=== PATIENT | male | born 1940 | race Caucasian/White ===

== ENCOUNTER 2023-06-14 12:33 | Inpatient (IN) | payer MEDICARE, OTHER ==
[~2023-06-14] VITALS: Ht 165.1 cm; Wt 50.5 kg
[2023-06-14] MEDS: SODIUM CHLORIDE 0.9% 1000ML BAG (SEPSIS BOLUS) IV ONE (13:07)
[2023-06-14] MEDS: PIPERACILLIN/TAZO 3.375G/50ML 50 ML IV ONE (13:31)
[2023-06-14 13:33] LABS: HEMATOCRIT. 43.2 % (42.0-52.0); HEMOGLOBIN. 13.8 g/dL (14.0-18.0); MEAN CORPUSCULAR HEMOGLOBIN 28.9 pg (28.0-32.0); MEAN CORPUSCULAR HGB CONC 32.1 g/dL (31.0-37.0); MEAN CORPUSCULAR VOLUME 90.2 fL (80.0-94.0); MEAN PLATELET VOLUME 10.5 fl (7.4-10.4); PLATELET 188 x1000/uL (130-400); RED BLOOD CELL COUNT 4.79 mill/uL (4.7-6.1); RED CELL DISTRIBUTION WIDTH 15.2 % (11.6-14.6); WHITE BLOOD COUNT 14.2 x1000/uL (4.5-11.0)
[2023-06-14 13:34] LABS: DIFFERENTIAL COMMENT 1
[2023-06-14 13:44] LABS: INR 1.1; PROTHROMBIN TIME 12.5 sec (9.6-11.0)
[2023-06-14 13:56] LABS: LACTIC ACID 2.1 mmol/L (0.4-2.0)
[2023-06-14 14:00] LABS: ALANINE AMINOTRANSFERASE 8 IU/L (10-49); ALBUMIN 3.9 g/dL (3.2-4.8); ASPARTATE AMINOTRANSFERASE 33 IU/L (<34); BILIRUBIN TOTAL 0.9 mg/dL (0.1-1.0); CALCIUM 10.3 mg/dL (8.7-10.4); CARBON DIOXIDE 28 mEq/L (21-32); CHLORIDE 110 mEq/L (98-107); CREATININE 3.4 mg/dL (0.6-1.3); GLUCOSE 127 mg/dL (70-105); POTASSIUM 4.8 mEq/L (3.5-5.1); PROTEIN TOTAL 7.6 g/dL (6.0-8.3); SODIUM 144 mEq/L (136-145); TROPONIN I HIGH SENSITIVITY 24 ng/L (3.0-53)
[2023-06-14] MEDS: ACETAMINOPHEN 650MG SUPP PR STA (14:00)
[2023-06-14 14:02] LABS: ANISOCYTOSIS 1+; PLATELET ESTIMATE NORMAL
[2023-06-14 14:03] LABS: UREA NITROGEN BLOOD 101 mg/dL (9-23)
[2023-06-14] MEDS: VANCOMYCIN 1G PREMIX 200 ML IV ONE (14:15)
[2023-06-14 14:57] LABS: CLARITY URINE CLOUDY (CLEAR); COLOR URINE DARK YELLOW (YELLOW); GLUCOSE URINE NEGATIVE (NEGATIVE); KETONES URINE TRACE (NEGATIVE); LEUKOCYTE ESTERASE URINE NEGATIVE (NEGATIVE); NITRITE URINE NEGATIVE (NEGATIVE); OCCULT BLOOD URINE 1+ (NEGATIVE); PROTEIN URINE 1+ (NEGATIVE); UROBILINOGEN URINE 0.2 E.U./dL (0.2-1.0)
[2023-06-14 15:24] LABS: BACTERIA URINE 2+; SQUAMOUS EPITHELIAL CELL URINE FEW /lpf (RARE/1+); WBC URINE 0-2 /hpf (0-2)
[2023-06-14] MEDS ORDERED: ACETAMINOPHEN 650MG SUPP PR PRN (15:45)
[2023-06-14] MEDS ORDERED: DEXTROSE 50% WATER 50ML SYRINGE IV PRN (15:45)
[2023-06-14] MEDS ORDERED: ONDANSETRON HCL 4MG/2ML INJ IV PRN (15:45)
[2023-06-14] MEDS: PANTOPRAZOLE SODIUM 40 MG/VIAL IV SCH (16:50)
[2023-06-14] MEDS: DEXT 5%/0.45% NACL 1000ML 1,000 ML IV SCH (16:50)
[2023-06-14] MEDS: BLOOD SUGAR DIAGNOSTIC STRIP TEST SCH (17:17)
[2023-06-14] MEDS: INSULIN LISPRO 100 UNITS/ML SUBCUT SCH (17:17)
[2023-06-14 21:02] LABS: CALCIUM 8.5 mg/dL (8.7-10.4); CREATININE 2.5 mg/dL (0.6-1.3); POTASSIUM 4.4 mEq/L (3.5-5.1)
[2023-06-14] MEDS: ENOXAPARIN 30MG/0.3ML SYR SUBCUT SCH (23:00)
[2023-06-14] MEDS: PIPERACILLIN/TAZO 3.375G/50ML 50 ML IV SCH (23:29)
[2023-06-14 23:32] LABS: CREATINE KINASE 92 IU/L (46-171); TROPONIN I HIGH SENSITIVITY 13 ng/L (3.0-53)
[2023-06-15] VITALS (7 sets, daily range): BP systolic 84–114; BP diastolic 36–79; PULSE 60–98; RESP 16–24; TEMP 97.9–98.7
[2023-06-15 06:51] LABS: HEMATOCRIT. 34.1 % (42.0-52.0); HEMOGLOBIN. 11.4 g/dL (14.0-18.0); MEAN CORPUSCULAR HEMOGLOBIN 29.8 pg (28.0-32.0); MEAN CORPUSCULAR HGB CONC 33.3 g/dL (31.0-37.0); MEAN CORPUSCULAR VOLUME 89.5 fL (80.0-94.0); MEAN PLATELET VOLUME 10.3 fl (7.4-10.4); PLATELET 149 x1000/uL (130-400); RED BLOOD CELL COUNT 3.81 mill/uL (4.7-6.1); RED CELL DISTRIBUTION WIDTH 15.5 % (11.6-14.6); WHITE BLOOD COUNT 9.9 x1000/uL (4.5-11.0)
[2023-06-15 07:00] LABS: DIFFERENTIAL COMMENT 1
[2023-06-15 07:14] LABS: CREATINE KINASE 78 IU/L (46-171); TROPONIN I HIGH SENSITIVITY 9 ng/L (3.0-53)
[2023-06-15 07:20] LABS: ALANINE AMINOTRANSFERASE < 7 IU/L (10-49); ALBUMIN 3.1 g/dL (3.2-4.8); ASPARTATE AMINOTRANSFERASE 28 IU/L (<34); BILIRUBIN TOTAL 0.5 mg/dL (0.1-1.0); CALCIUM 8.7 mg/dL (8.7-10.4); CARBON DIOXIDE 23 mEq/L (21-32); CHLORIDE 115 mEq/L (98-107); CHOLESTEROL 97 mg/dL (<200); CREATININE 1.8 mg/dL (0.6-1.3); GLUCOSE 127 mg/dL (70-105); HDL CHOLESTEROL < 20 mg/dL (>55); LDL CHOLESTEROL 44 mg/dL (5-100); PHOSPHORUS 3.3 mg/dL (2.5-4.9); POTASSIUM 3.8 mEq/L (3.5-5.1); SODIUM 146 mEq/L (136-145); T4 FREE 0.92 ng/dL (0.89-1.76); THYROID STIMULATING HORMONE 1.04 uIU/mL (0.55-4.78); TRIGLYCERIDE 166 mg/dL (0-150); UREA NITROGEN BLOOD 67 mg/dL (9-23)
[2023-06-15 07:28] LABS: PROTEIN TOTAL 5.5 g/dL (6.0-8.3)
[2023-06-15] MEDS: DEXT 5%/LACTATED RINGERS 1,000 ML IV SCH (09:02)
[2023-06-15] MEDS ORDERED: VANCOMYCIN 1.25GM PMX (XELLIA) 250 ML IV NR (11:00)
[2023-06-15 12:32] LABS: BG BASE EXCESS -1.5 mmol/L (-2.0-2.0); BG CARBOXYHEMOGLOBIN 0.3 % (0.5-1.5); BG DEOXYHEMOGLOBIN 2.1 % (0.0-5.0); BG FRACTION INSPIRED OXYGEN 24; BG METHEMOGLOBIN 0.3 % (0.0-1.5); BG OXYGEN SATURATION 97.9 % (92.0-98.5); BG OXYHEMOGLOBIN 97.3 % (94.0-97.0); BG PCO2 37.7 mmHg (35.0-45.0); BG PH 7.403 (7.350-7.450); BG PO2 111.3 mmHg (75.0-100.0); BG SAMPLE SITE RIGHT RADIAL; BG TOTAL HEMOGLOBIN 11.5 g/dL (12.0-18.0); BG VENT MODE ROOM AIR
[2023-06-15] MEDS: MIDODRINE HCL 5MG TABLET PO SCH ×2 (13:04→17:41)
[2023-06-15] MEDS: DEXT 5%/0.2% NACL 1,000 ML IV SCH (13:46)
[2023-06-15] MEDS: SODIUM CHLORIDE 0.45% 500 ML IV ONE (14:39)
[2023-06-15 16:04] LABS: PLATELET ESTIMATE NORMAL
[2023-06-15] MEDS ORDERED: DIATR MEGLU/DIATRIZOATE SOLN 30ML ONE (16:53)
[2023-06-15] MEDS: NA PHOS,M-B/NA PHOS,DI-BA ENEMA 118ML PR ONE (21:45)
[2023-06-16] VITALS (9 sets, daily range): BP systolic 99–135; BP diastolic 43–64; PULSE 77–91; RESP 16–20; TEMP 97.5–98.7
[2023-06-16 06:35] LABS: HEMATOCRIT. 32.5 % (42.0-52.0); HEMOGLOBIN. 10.8 g/dL (14.0-18.0); MEAN CORPUSCULAR HGB CONC 33.2 g/dL (31.0-37.0); MEAN CORPUSCULAR VOLUME 90.4 fL (80.0-94.0); PLATELET 143 x1000/uL (130-400); RED BLOOD CELL COUNT 3.59 mill/uL (4.7-6.1); RED CELL DISTRIBUTION WIDTH 15.1 % (11.6-14.6); WHITE BLOOD COUNT 7.4 x1000/uL (4.5-11.0)
[2023-06-16 06:45] LABS: DIFFERENTIAL COMMENT 1
[2023-06-16 07:07] LABS: ALANINE AMINOTRANSFERASE 23 IU/L (10-49); ALBUMIN 2.9 g/dL (3.2-4.8); ASPARTATE AMINOTRANSFERASE 58 IU/L (<34); BILIRUBIN TOTAL 0.5 mg/dL (0.1-1.0); CALCIUM 8.4 mg/dL (8.7-10.4); CARBON DIOXIDE 24 mEq/L (21-32); CHLORIDE 114 mEq/L (98-107); CREATININE 1.1 mg/dL (0.6-1.3); GLUCOSE 142 mg/dL (70-105); PHOSPHORUS 1.7 mg/dL (2.5-4.9); POTASSIUM 3.1 mEq/L (3.5-5.1); PROTEIN TOTAL 5.5 g/dL (6.0-8.3); SODIUM 143 mEq/L (136-145); UREA NITROGEN BLOOD 39 mg/dL (9-23)
[2023-06-16] MEDS: POTASSIUM PHOSPHATE 30 MMOL in SODIUM CHLORIDE 0.9% 490 ML IV NR (09:48)
[2023-06-16] MEDS ORDERED: POTASSIUM PHOSPHATE 20 MMOL in DEXT 5% WATER 243.3333 ML IV ONE (11:00)
[2023-06-16] MEDS: PIPERACILLIN/TAZO 3.375G/50ML 50 ML IV SCH (15:34)
[2023-06-16 15:35] LABS: PLATELET ESTIMATE NORMAL
[2023-06-16 16:13] LABS: CALCIUM 7.9 mg/dL (8.7-10.4); CARBON DIOXIDE 26 mEq/L (21-32); CHLORIDE 112 mEq/L (98-107); CREATININE 0.9 mg/dL (0.6-1.3); GLUCOSE 103 mg/dL (70-105); PHOSPHORUS 3.5 mg/dL (2.5-4.9); POTASSIUM 3.8 mEq/L (3.5-5.1); SODIUM 143 mEq/L (136-145); UREA NITROGEN BLOOD 30 mg/dL (9-23)
[2023-06-17] VITALS (46 sets, daily range): BP systolic 52–156; BP diastolic 36–86; PULSE 85–143; RESP 15–40; TEMP 97.7–99.8
[2023-06-17 07:49] LABS: HEMATOCRIT 32.4 % (42.0-52.0); HEMOGLOBIN 10.7 g/dL (14.0-18.0); MEAN CORPUSCULAR HEMOGLOBIN 29.4 pg (28.0-32.0); MEAN CORPUSCULAR VOLUME 89.1 fL (80.0-94.0); PLATELET 146 x1000/uL (130-400); RED BLOOD CELL COUNT 3.64 mill/uL (4.7-6.1); WHITE BLOOD COUNT 8.6 x1000/uL (4.5-11.0)
[2023-06-17 07:52] LABS: CALCIUM 7.7 mg/dL (8.7-10.4); CARBON DIOXIDE 26 mEq/L (21-32); CHLORIDE 107 mEq/L (98-107); CREATININE 0.9 mg/dL (0.6-1.3); GLUCOSE 145 mg/dL (70-105); PHOSPHORUS 1.8 mg/dL (2.5-4.9); POTASSIUM 3.2 mEq/L (3.5-5.1); SODIUM 140 mEq/L (136-145); UREA NITROGEN BLOOD 19 mg/dL (9-23)
[2023-06-17] MEDS: MAGNESIUM 2 G PREMIX 50 ML IV NR (11:39)
[2023-06-17] MEDS: POTASSIUM PHOSPHATE 30 MMOL in DEXT 5% WATER 490 ML IV ONE (12:50)
[2023-06-17] MEDS ORDERED: DILTIAZEM HCL 5MG/ML 5ML VIAL IV NR (15:00)
[2023-06-17 15:20] LABS: BG BASE EXCESS 3.5 mmol/L (-2.0-2.0); BG CARBOXYHEMOGLOBIN 0.3 % (0.5-1.5); BG DEOXYHEMOGLOBIN 19.1 % (0.0-5.0); BG FRACTION INSPIRED OXYGEN 40; BG HCO3 ACT 25.5 mmol/L (22.0-26.0); BG METHEMOGLOBIN 0.2 % (0.0-1.5); BG OXYGEN SATURATION 80.8 % (92.0-98.5); BG OXYHEMOGLOBIN 80.4 % (94.0-97.0); BG PCO2 30.9 mmHg (35.0-45.0); BG PH 7.535 (7.350-7.450); BG PO2 39.3 mmHg (75.0-100.0); BG SAMPLE SITE RIGHT RADIAL; BG TOTAL HEMOGLOBIN 13.3 g/dL (12.0-18.0); BG VENT MODE NASAL CANNULA
[2023-06-17] MEDS ORDERED: NOREPINEPHRINE 8MG/250ML PMX 250 ML IV ONE (16:15)
[2023-06-17] MEDS ORDERED: KETAMINE HCL 50 MG/ML 10ML IV NR (16:30)
[2023-06-17] MEDS ORDERED: NOREPINEPHRINE 8MG/250ML PMX 250 ML IV PRN (16:45)
[2023-06-17] MEDS: PROPOFOL 10MG/ML 100ML 100 ML IV PRN (17:05)
[2023-06-17] MEDS ORDERED: MIDAZOLAM HCL 5 MG/5 ML VIAL IV NR (17:30)
[2023-06-17] MEDS ORDERED: MIDAZOLAM 100MG/100ML PMX 100 ML IV PRN (17:45)
[2023-06-17] MEDS: MIDAZOLAM HCL 2 MG/2 ML VIAL IV NR (17:47)
[2023-06-17] MEDS: NOREPINEPHRINE 8MG/250ML PMX 250 ML IV PRN (17:48)
[2023-06-17 18:04] LABS: BG BASE EXCESS -1.1 mmol/L (-2.0-2.0); BG CARBOXYHEMOGLOBIN 0.2 % (0.5-1.5); BG DEOXYHEMOGLOBIN 1.1 % (0.0-5.0); BG FRACTION INSPIRED OXYGEN 100; BG HCO3 ACT 27.5 mmol/L (22.0-26.0); BG METHEMOGLOBIN 0.6 % (0.0-1.5); BG OXYGEN SATURATION 98.9 % (92.0-98.5); BG OXYHEMOGLOBIN 98.1 % (94.0-97.0); BG PCO2 64.5 mmHg (35.0-45.0); BG PH 7.248 (7.350-7.450); BG PO2 196.1 mmHg (75.0-100.0); BG SAMPLE SITE RIGHT RADIAL; BG TOTAL HEMOGLOBIN 13.4 g/dL (12.0-18.0); BG VENT MODE VENT - AC
[2023-06-17] MEDS: IPRATROPIUM/ALBUTEROL 0.5-3(2.5)MG/3ML NEB HHN SCH (18:21)
[2023-06-17] MEDS: SODIUM BICARBONATE 8.4% 1 MEQ/ML 50ML SYR IV NR (18:24)
[2023-06-17] MEDS: METOCLOPRAMIDE HCL 10MG/2ML VIAL IV SCH (18:24)
[2023-06-17] MEDS: METHYLPREDNISOLONE SOD SUCC 40MG/ML (ACT-O-VIAL) IV SCH (18:24)
[2023-06-17] MEDS: FENTANYL 2500MCG/250ML PMX 250 ML IV PRN (18:25)
[2023-06-17] MEDS: BUDESONIDE 0.5MG/2ML NEB HHN SCH (20:09)
[2023-06-17] MEDS: AZITHROMYCIN 500MG/250ML 250 ML IV SCH (21:34)
[2023-06-18] VITALS (109 sets, daily range): BP systolic 83–151; BP diastolic 32–99; PULSE 59–126; RESP 0–39; TEMP 97.3–98.6
[2023-06-18] MEDS: BLOOD SUGAR DIAGNOSTIC STRIP TEST SCH (00:16)
[2023-06-18] MEDS: INSULIN LISPRO 100 UNITS/ML SUBCUT SCH (00:21)
[2023-06-18 05:18] LABS: HEMATOCRIT. 36.7 % (42.0-52.0); HEMOGLOBIN. 12.2 g/dL (14.0-18.0); MEAN CORPUSCULAR HEMOGLOBIN 30.2 pg (28.0-32.0); MEAN CORPUSCULAR HGB CONC 33.2 g/dL (31.0-37.0); MEAN CORPUSCULAR VOLUME 90.9 fL (80.0-94.0); MEAN PLATELET VOLUME 10.6 fl (7.4-10.4); PLATELET 197 x1000/uL (130-400); RED BLOOD CELL COUNT 4.04 mill/uL (4.7-6.1); RED CELL DISTRIBUTION WIDTH 15.1 % (11.6-14.6); WHITE BLOOD COUNT 12.5 x1000/uL (4.5-11.0)
[2023-06-18 05:25] LABS: BG BASE EXCESS 2.6 mmol/L (-2.0-2.0); BG CARBOXYHEMOGLOBIN 0.3 % (0.5-1.5); BG FRACTION INSPIRED OXYGEN 50; BG METHEMOGLOBIN 0.5 % (0.0-1.5); BG OXYHEMOGLOBIN 95.2 % (94.0-97.0); BG PCO2 52.6 mmHg (35.0-45.0); BG PO2 84.4 mmHg (75.0-100.0); BG SAMPLE SITE RIGHT RADIAL; BG TOTAL HEMOGLOBIN 13.3 g/dL (12.0-18.0); BG VENT MODE VENT - AC
[2023-06-18 05:58] LABS: CARBON DIOXIDE 27 mEq/L (21-32); CHLORIDE 104 mEq/L (98-107); CREATININE 1.2 mg/dL (0.6-1.3); PHOSPHORUS 3.2 mg/dL (2.5-4.9); POTASSIUM 3.6 mEq/L (3.5-5.1); SODIUM 140 mEq/L (136-145); TRIGLYCERIDE 161 mg/dL (0-150); UREA NITROGEN BLOOD 19 mg/dL (9-23)
[2023-06-18 05:59] LABS: GLUCOSE 310 mg/dL (70-105)
[2023-06-18 06:40] LABS: DIFFERENTIAL COMMENT 1
[2023-06-18 08:48] LABS: BG BASE EXCESS 2.3 mmol/L (-2.0-2.0); BG CARBOXYHEMOGLOBIN 0.6 % (0.5-1.5); BG DEOXYHEMOGLOBIN 0.7 % (0.0-5.0); BG FRACTION INSPIRED OXYGEN 50; BG HCO3 ACT 28.6 mmol/L (22.0-26.0); BG METHEMOGLOBIN 0.5 % (0.0-1.5); BG OXYGEN SATURATION 99.3 % (92.0-98.5); BG OXYHEMOGLOBIN 98.2 % (94.0-97.0); BG PCO2 50.7 mmHg (35.0-45.0); BG PH 7.369 (7.350-7.450); BG PO2 176.4 mmHg (75.0-100.0); BG SAMPLE SITE RIGHT RADIAL; BG TOTAL HEMOGLOBIN 15.3 g/dL (12.0-18.0); BG VENT MODE VENT - AC
[2023-06-18 10:00] LABS: ANISOCYTOSIS 1+; PLATELET ESTIMATE NORMAL
[2023-06-18] MEDS ORDERED: SODIUM CHLORIDE 0.45% 500 ML IV ONE (11:45)
[2023-06-18] MEDS: DEXT 5%/0.45% NACL 1000ML 1,000 ML IV SCH (12:40)
[2023-06-18] MEDS: LACTATED RINGERS 1,000 ML IV ONE (12:41)
[2023-06-18] MEDS: IPRATROPIUM/ALBUTEROL 0.5-3(2.5)MG/3ML NEB HHN PRN (16:13)
[2023-06-18] MEDS: PROPOFOL 10MG/ML 100ML 100 ML IV PRN (19:00)
[2023-06-18] MEDS: MEROPENEM 1G/100ML 100 ML IV SCH (23:52)
[2023-06-19] VITALS (96 sets, daily range): BP systolic 61–158; BP diastolic 31–85; PULSE 59–124; RESP 0–40; TEMP 98.2–98.7
[2023-06-19 05:39] LABS: HEMATOCRIT. 35.5 % (42.0-52.0); HEMOGLOBIN. 11.7 g/dL (14.0-18.0); MEAN CORPUSCULAR HEMOGLOBIN 29.6 pg (28.0-32.0); MEAN CORPUSCULAR VOLUME 89.7 fL (80.0-94.0); MEAN PLATELET VOLUME 10.5 fl (7.4-10.4); PLATELET 258 x1000/uL (130-400); RED BLOOD CELL COUNT 3.96 mill/uL (4.7-6.1); RED CELL DISTRIBUTION WIDTH 14.3 % (11.6-14.6); WHITE BLOOD COUNT 27.4 x1000/uL (4.5-11.0)
[2023-06-19 05:53] LABS: CALCIUM 8.3 mg/dL (8.7-10.4); CARBON DIOXIDE 27 mEq/L (21-32); CHLORIDE 106 mEq/L (98-107); CREATININE 0.9 mg/dL (0.6-1.3); GLUCOSE 243 mg/dL (70-105); PHOSPHORUS 1.8 mg/dL (2.5-4.9); POTASSIUM 3.1 mEq/L (3.5-5.1); SODIUM 141 mEq/L (136-145); TRIGLYCERIDE 237 mg/dL (0-150); UREA NITROGEN BLOOD 18 mg/dL (9-23)
[2023-06-19 06:23] LABS: DIFFERENTIAL COMMENT 1
[2023-06-19 08:29] LABS: BG BASE EXCESS 5.6 mmol/L (-2.0-2.0); BG CARBOXYHEMOGLOBIN 0.3 % (0.5-1.5); BG DEOXYHEMOGLOBIN 0.7 % (0.0-5.0); BG FRACTION INSPIRED OXYGEN 40; BG HCO3 ACT 28.3 mmol/L (22.0-26.0); BG METHEMOGLOBIN 0.5 % (0.0-1.5); BG OXYGEN SATURATION 99.3 % (92.0-98.5); BG OXYHEMOGLOBIN 98.5 % (94.0-97.0); BG PCO2 34.3 mmHg (35.0-45.0); BG PH 7.534 (7.350-7.450); BG PO2 215.5 mmHg (75.0-100.0); BG SAMPLE SITE RIGHT RADIAL; BG TOTAL HEMOGLOBIN 11.6 g/dL (12.0-18.0); BG VENT MODE AC/VC
[2023-06-19] MEDS ORDERED: MIDAZOLAM HCL 5 MG/5 ML VIAL IV PRN (11:00)
[2023-06-19 11:11] LABS: PLATELET ESTIMATE NORMAL
[2023-06-19] MEDS: POTASSIUM PHOSPHATE 30 MMOL in DEXT 5% WATER 490 ML IV NR (12:16)
[2023-06-19] MEDS: FENTANYL CITRATE/PF 50MCG/ML 2ML VIAL IV PRN (21:16)
[2023-06-19] MEDS ORDERED: IOHEXOL-300 100 ML BOTTLE ONE (23:00)
[2023-06-20] VITALS (99 sets, daily range): BP systolic 69–188; BP diastolic 48–127; PULSE 69–109; RESP 16–40; TEMP 98–99.5
[2023-06-20 08:29] LABS: BG BASE EXCESS 3.9 mmol/L (-2.0-2.0); BG CARBOXYHEMOGLOBIN 0.2 % (0.5-1.5); BG DEOXYHEMOGLOBIN 4.4 % (0.0-5.0); BG FRACTION INSPIRED OXYGEN 30; BG METHEMOGLOBIN 0.2 % (0.0-1.5); BG OXYGEN SATURATION 95.6 % (92.0-98.5); BG OXYHEMOGLOBIN 95.2 % (94.0-97.0); BG PCO2 35.3 mmHg (35.0-45.0); BG PH 7.501 (7.350-7.450); BG PO2 73.8 mmHg (75.0-100.0); BG SAMPLE SITE LEFT RADIAL; BG TOTAL HEMOGLOBIN 12.1 g/dL (12.0-18.0); BG TOTAL RESPIRATORY RATE 39 b/min; BG VENT MODE VENT - AC
[2023-06-20] MEDS: MIDAZOLAM HCL 2 MG/2 ML VIAL IV PRN (08:35)
[2023-06-20 09:19] LABS: HEMATOCRIT. 32.4 % (42.0-52.0); HEMOGLOBIN. 10.5 g/dL (14.0-18.0); MEAN CORPUSCULAR HEMOGLOBIN 28.5 pg (28.0-32.0); MEAN CORPUSCULAR HGB CONC 32.3 g/dL (31.0-37.0); MEAN CORPUSCULAR VOLUME 88.1 fL (80.0-94.0); MEAN PLATELET VOLUME 10.2 fl (7.4-10.4); PLATELET 221 x1000/uL (130-400); RED BLOOD CELL COUNT 3.67 mill/uL (4.7-6.1); RED CELL DISTRIBUTION WIDTH 14.9 % (11.6-14.6)
[2023-06-20 09:30] LABS: DIFFERENTIAL COMMENT 1
[2023-06-20 09:59] LABS: CALCIUM 7.8 mg/dL (8.7-10.4); CARBON DIOXIDE 26 mEq/L (21-32); CHLORIDE 107 mEq/L (98-107); CREATININE 0.8 mg/dL (0.6-1.3); GLUCOSE 169 mg/dL (70-105); POTASSIUM 3.8 mEq/L (3.5-5.1); SODIUM 141 mEq/L (136-145); UREA NITROGEN BLOOD 23 mg/dL (9-23)
[2023-06-20 10:00] LABS: PHOSPHORUS 2.1 mg/dL (2.5-4.9)
[2023-06-20] MEDS ORDERED: MIDAZOLAM 100MG/100ML PMX 100 ML IV PRN (10:30)
[2023-06-20] MEDS ORDERED: FENTANYL 2500MCG/250ML PMX 250 ML IV PRN (10:30)
[2023-06-20 11:23] LABS: PLATELET ESTIMATE NORMAL
[2023-06-20] MEDS: FENTANYL CITRATE/PF 50MCG/ML 2ML VIAL IV NR (11:31)
[2023-06-20] MEDS: MIDAZOLAM HCL 2 MG/2 ML VIAL IV NR (11:32)
[2023-06-20] MEDS: POTASSIUM PHOSPHATE 20 MMOL in DEXT 5% WATER 243.3333 ML IV NR (17:33)
[2023-06-20] MEDS: NOREPINEPHRINE 8MG/250ML PMX 250 ML IV PRN (19:04)
[2023-06-20] MEDS: ENOXAPARIN 40MG/0.4ML SYR SUBCUT SCH (21:11)
[2023-06-21] VITALS (97 sets, daily range): BP systolic 67–139; BP diastolic 46–83; PULSE 63–135; RESP 14–37; TEMP 97.5–98.3
[2023-06-21 05:56] LABS: HEMATOCRIT 31.6 % (42.0-52.0); HEMOGLOBIN 10.6 g/dL (14.0-18.0); MEAN CORPUSCULAR HEMOGLOBIN 30.5 pg (28.0-32.0); MEAN CORPUSCULAR HGB CONC 33.4 g/dL (31.0-37.0); MEAN CORPUSCULAR VOLUME 91.1 fL (80.0-94.0); PLATELET 234 x1000/uL (130-400); RED BLOOD CELL COUNT 3.47 mill/uL (4.7-6.1); RED CELL DISTRIBUTION WIDTH 14.8 % (11.6-14.6); WHITE BLOOD COUNT 17.2 x1000/uL (4.5-11.0)
[2023-06-21 06:08] LABS: CARBON DIOXIDE 26 mEq/L (21-32); CHLORIDE 107 mEq/L (98-107); CREATININE 0.7 mg/dL (0.6-1.3); GLUCOSE 162 mg/dL (70-105); PHOSPHORUS 2.5 mg/dL (2.5-4.9); POTASSIUM 4.3 mEq/L (3.5-5.1); SODIUM 139 mEq/L (136-145); UREA NITROGEN BLOOD 25 mg/dL (9-23)
[2023-06-21 07:22] LABS: BG CARBOXYHEMOGLOBIN 0.3 % (0.5-1.5); BG DEOXYHEMOGLOBIN 1.8 % (0.0-5.0); BG FRACTION INSPIRED OXYGEN 35; BG HCO3 ACT 27.3 mmol/L (22.0-26.0); BG METHEMOGLOBIN 0.1 % (0.0-1.5); BG OXYGEN SATURATION 98.2 % (92.0-98.5); BG OXYHEMOGLOBIN 97.8 % (94.0-97.0); BG PCO2 36.4 mmHg (35.0-45.0); BG PH 7.493 (7.350-7.450); BG PO2 112.6 mmHg (75.0-100.0); BG SAMPLE SITE RIGHT RADIAL; BG TOTAL HEMOGLOBIN 11.8 g/dL (12.0-18.0); BG VENT MODE VENT - AC/VC
[2023-06-21] MEDS: SODIUM CHLORIDE 0.45% 1,000 ML IV SCH (08:29)
[2023-06-21] MEDS: MAGNESIUM 2 G PREMIX 50 ML IV NR (08:38)
[2023-06-21] MEDS ORDERED: LACTATED RINGERS 500 ML IV ONE (10:00)
[2023-06-21] MEDS: IPRATROPIUM/ALBUTEROL 0.5-3(2.5)MG/3ML NEB HHN SCH (14:43)
[2023-06-21] MEDS: ACETYLCYSTEINE 200MG/ML 20% VIAL 4ML INH SCH (14:43)
[2023-06-21] MEDS: MIDODRINE HCL 5MG TABLET PO SCH (18:38)
[2023-06-22] VITALS (41 sets, daily range): BP systolic 92–129; BP diastolic 46–85; PULSE 64–103; RESP 16–32; TEMP 98–98.9
[2023-06-22 06:23] LABS: HEMATOCRIT 31.7 % (42.0-52.0); HEMOGLOBIN 10.1 g/dL (14.0-18.0); MEAN CORPUSCULAR HEMOGLOBIN 29.4 pg (28.0-32.0); MEAN CORPUSCULAR HGB CONC 31.9 g/dL (31.0-37.0); MEAN CORPUSCULAR VOLUME 92.3 fL (80.0-94.0); PLATELET 230 x1000/uL (130-400); RED BLOOD CELL COUNT 3.44 mill/uL (4.7-6.1); RED CELL DISTRIBUTION WIDTH 14.7 % (11.6-14.6); WHITE BLOOD COUNT 17.8 x1000/uL (4.5-11.0)
[2023-06-22 06:51] LABS: CALCIUM 7.9 mg/dL (8.7-10.4); CARBON DIOXIDE 25 mEq/L (21-32); CHLORIDE 105 mEq/L (98-107); CREATININE 0.8 mg/dL (0.6-1.3); GLUCOSE 144 mg/dL (70-105); PHOSPHORUS 2.9 mg/dL (2.5-4.9); POTASSIUM 4.6 mEq/L (3.5-5.1); SODIUM 135 mEq/L (136-145); UREA NITROGEN BLOOD 24 mg/dL (9-23)
[2023-06-22 08:18] LABS: BG BASE EXCESS 3.5 mmol/L (-2.0-2.0); BG CARBOXYHEMOGLOBIN 0.3 % (0.5-1.5); BG DEOXYHEMOGLOBIN 1.8 % (0.0-5.0); BG FRACTION INSPIRED OXYGEN 35; BG HCO3 ACT 27.6 mmol/L (22.0-26.0); BG METHEMOGLOBIN 0.3 % (0.0-1.5); BG OXYGEN SATURATION 98.2 % (92.0-98.5); BG OXYHEMOGLOBIN 97.6 % (94.0-97.0); BG PH 7.457 (7.350-7.450); BG PO2 131.9 mmHg (75.0-100.0); BG SAMPLE SITE RIGHT RADIAL; BG TOTAL HEMOGLOBIN 10.6 g/dL (12.0-18.0); BG VENT MODE VENT - AC
[2023-06-22] MEDS: SODIUM CHLORIDE 0.9% 1,000 ML IV SCH (13:00)
[2023-06-22] MEDS ORDERED: MIDAZOLAM HCL 5 MG/5 ML VIAL IV PRN (21:45)
[2023-06-22] MEDS ORDERED: MIDAZOLAM HCL 2 MG/2 ML VIAL IV PRN (22:29)
[2023-06-23] VITALS (29 sets, daily range): BP systolic 101–126; BP diastolic 51–75; PULSE 65–92; RESP 16–38; TEMP 98–98.6; O2SAT 98–100
[2023-06-23 05:44] LABS: HEMATOCRIT 32.3 % (42.0-52.0); HEMATOCRIT. 32.3 % (42.0-52.0); HEMOGLOBIN 10.6 g/dL (14.0-18.0); HEMOGLOBIN. 10.6 g/dL (14.0-18.0); MEAN CORPUSCULAR HEMOGLOBIN 29.5 pg (28.0-32.0); MEAN CORPUSCULAR HGB CONC 32.8 g/dL (31.0-37.0); MEAN CORPUSCULAR VOLUME 89.9 fL (80.0-94.0); MEAN PLATELET VOLUME 9.6 fl (7.4-10.4); PLATELET 210 x1000/uL (130-400); RED CELL DISTRIBUTION WIDTH 14.6 % (11.6-14.6); WHITE BLOOD COUNT 15.3 x1000/uL (4.5-11.0)
[2023-06-23 06:02] LABS: DIFFERENTIAL COMMENT 1
[2023-06-23 06:09] LABS: CARBON DIOXIDE 27 mEq/L (21-32); CHLORIDE 105 mEq/L (98-107); CREATININE 0.7 mg/dL (0.6-1.3); GLUCOSE 139 mg/dL (70-105); PHOSPHORUS 2.8 mg/dL (2.5-4.9); POTASSIUM 4.5 mEq/L (3.5-5.1); SODIUM 138 mEq/L (136-145); UREA NITROGEN BLOOD 27 mg/dL (9-23)
[2023-06-23 11:43] LABS: BG BASE EXCESS 4.3 mmol/L (-2.0-2.0); BG CARBOXYHEMOGLOBIN 0.1 % (0.5-1.5); BG DEOXYHEMOGLOBIN 2.1 % (0.0-5.0); BG FRACTION INSPIRED OXYGEN 35; BG HCO3 ACT 28.8 mmol/L (22.0-26.0); BG METHEMOGLOBIN 0.2 % (0.0-1.5); BG OXYGEN SATURATION 97.9 % (92.0-98.5); BG OXYHEMOGLOBIN 97.6 % (94.0-97.0); BG PH 7.444 (7.350-7.450); BG PO2 112.4 mmHg (75.0-100.0); BG SAMPLE SITE RIGHT BRACHIAL; BG TOTAL HEMOGLOBIN 11.4 g/dL (12.0-18.0); BG TOTAL RESPIRATORY RATE 42 b/min; BG VENT MODE HIGH FLOW
[2023-06-23 16:49] LABS: PLATELET ESTIMATE NORMAL
[2023-06-23] MEDS: METHYLPREDNISOLONE SOD SUCC 40MG/ML (ACT-O-VIAL) IV SCH (17:00)
[2023-06-24] VITALS (26 sets, daily range): BP systolic 100–135; BP diastolic 49–102; PULSE 66–102; RESP 15–38; TEMP 97.6–98.7; O2SAT 98–99
[2023-06-24] MEDS: ACETYLCYSTEINE 200MG/ML 20% VIAL 4ML INH SCH (00:36)
[2023-06-24 06:58] LABS: HEMATOCRIT 34.7 % (42.0-52.0); HEMOGLOBIN 11.4 g/dL (14.0-18.0); MEAN CORPUSCULAR HEMOGLOBIN 29.4 pg (28.0-32.0); MEAN CORPUSCULAR HGB CONC 32.8 g/dL (31.0-37.0); MEAN CORPUSCULAR VOLUME 89.6 fL (80.0-94.0); PLATELET 241 x1000/uL (130-400); RED BLOOD CELL COUNT 3.87 mill/uL (4.7-6.1); RED CELL DISTRIBUTION WIDTH 14.3 % (11.6-14.6); WHITE BLOOD COUNT 16.4 x1000/uL (4.5-11.0)
[2023-06-24 09:39] LABS: CALCIUM 7.8 mg/dL (8.7-10.4); CARBON DIOXIDE 30 mEq/L (21-32); CHLORIDE 103 mEq/L (98-107); CREATININE 0.6 mg/dL (0.6-1.3); GLUCOSE 83 mg/dL (70-105); PHOSPHORUS 2.3 mg/dL (2.5-4.9); POTASSIUM 4.3 mEq/L (3.5-5.1); SODIUM 137 mEq/L (136-145); UREA NITROGEN BLOOD 27 mg/dL (9-23)
[2023-06-25] VITALS (15 sets, daily range): BP systolic 106–154; BP diastolic 50–85; PULSE 75–94; RESP 17–36; TEMP 97.5–97.8; O2SAT 98–99
[2023-06-25 06:18] LABS: HEMATOCRIT 36.6 % (42.0-52.0); MEAN CORPUSCULAR HEMOGLOBIN 29.3 pg (28.0-32.0); MEAN CORPUSCULAR HGB CONC 32.8 g/dL (31.0-37.0); MEAN CORPUSCULAR VOLUME 89.1 fL (80.0-94.0); PLATELET 258 x1000/uL (130-400); RED BLOOD CELL COUNT 4.11 mill/uL (4.7-6.1); RED CELL DISTRIBUTION WIDTH 14.1 % (11.6-14.6); WHITE BLOOD COUNT 14.3 x1000/uL (4.5-11.0)
[2023-06-25 06:33] LABS: CALCIUM 8.2 mg/dL (8.7-10.4); CARBON DIOXIDE 30 mEq/L (21-32); CHLORIDE 103 mEq/L (98-107); CREATININE 0.6 mg/dL (0.6-1.3); GLUCOSE 154 mg/dL (70-105); PHOSPHORUS 2.8 mg/dL (2.5-4.9); POTASSIUM 4.5 mEq/L (3.5-5.1); SODIUM 137 mEq/L (136-145); UREA NITROGEN BLOOD 25 mg/dL (9-23)
[2023-06-26] VITALS (12 sets, daily range): BP systolic 74–131; BP diastolic 38–108; PULSE 72–120; RESP 16–40; TEMP 97.3–98.2
[2023-06-26 06:38] LABS: HEMATOCRIT. 40.8 % (42.0-52.0); HEMOGLOBIN. 13.2 g/dL (14.0-18.0); MEAN CORPUSCULAR HEMOGLOBIN 29.3 pg (28.0-32.0); MEAN CORPUSCULAR HGB CONC 32.4 g/dL (31.0-37.0); MEAN CORPUSCULAR VOLUME 90.6 fL (80.0-94.0); MEAN PLATELET VOLUME 9.4 fl (7.4-10.4); PLATELET 223 x1000/uL (130-400); RED BLOOD CELL COUNT 4.51 mill/uL (4.7-6.1); RED CELL DISTRIBUTION WIDTH 14.6 % (11.6-14.6); WHITE BLOOD COUNT 14.9 x1000/uL (4.5-11.0)
[2023-06-26 06:44] LABS: DIFFERENTIAL COMMENT 1
[2023-06-26 07:00] LABS: CALCIUM 8.2 mg/dL (8.7-10.4); CARBON DIOXIDE 31 mEq/L (21-32); CHLORIDE 102 mEq/L (98-107); CREATININE 0.6 mg/dL (0.6-1.3); GLUCOSE 121 mg/dL (70-105); PHOSPHORUS 2.6 mg/dL (2.5-4.9); POTASSIUM 4.9 mEq/L (3.5-5.1); SODIUM 137 mEq/L (136-145); UREA NITROGEN BLOOD 24 mg/dL (9-23)
[2023-06-26 13:10] LABS: PLATELET ESTIMATE NORMAL
[2023-06-26] MEDS ORDERED: LOPERAMIDE 2MG/15ML UDC GT SCH (17:00)
[2023-06-26] MEDS: LOPERAMIDE 2MG/15ML UDC PO NR (18:17)
[2023-06-26] MEDS: ACETAMINOPHEN 650MG/20.3ML UDC PO PRN (18:51)
[2023-06-26] MEDS: METHYLPREDNISOLONE SOD SUCC 40MG/ML (ACT-O-VIAL) IV SCH (21:44)
[2023-06-26] MEDS: ZOLPIDEM TARTRATE 5MG TABLET PO NR (22:47)
[2023-06-27] VITALS (12 sets, daily range): BP systolic 85–135; BP diastolic 41–66; PULSE 83–104; RESP 17–39; TEMP 97.7–98
[2023-06-27 06:30] LABS: HEMATOCRIT 34.8 % (42.0-52.0); HEMOGLOBIN 11.7 g/dL (14.0-18.0); MEAN CORPUSCULAR HEMOGLOBIN 30.1 pg (28.0-32.0); MEAN CORPUSCULAR HGB CONC 33.5 g/dL (31.0-37.0); MEAN CORPUSCULAR VOLUME 89.8 fL (80.0-94.0); PLATELET 187 x1000/uL (130-400); RED BLOOD CELL COUNT 3.87 mill/uL (4.7-6.1); RED CELL DISTRIBUTION WIDTH 14.7 % (11.6-14.6); WHITE BLOOD COUNT 13.9 x1000/uL (4.5-11.0)
[2023-06-27 07:11] LABS: CALCIUM 7.9 mg/dL (8.7-10.4); CARBON DIOXIDE 31 mEq/L (21-32); CHLORIDE 102 mEq/L (98-107); CREATININE 0.6 mg/dL (0.6-1.3); GLUCOSE 137 mg/dL (70-105); PHOSPHORUS 2.6 mg/dL (2.5-4.9); POTASSIUM 4.8 mEq/L (3.5-5.1); SODIUM 137 mEq/L (136-145); UREA NITROGEN BLOOD 30 mg/dL (9-23)
[2023-06-27] MEDS ORDERED: IMOD PO (10:37)
[2023-06-27] MEDS ORDERED: MIDO5TAB4 PO (10:37)
[2023-06-27] MEDS: LOPERAMIDE HCL 2MG CAPSULE PO PRN (11:09)
[2023-06-27 16:38] LABS: BG BASE EXCESS 5.7 mmol/L (-2.0-2.0); BG CARBOXYHEMOGLOBIN 0.5 % (0.5-1.5); BG DEOXYHEMOGLOBIN 8.8 % (0.0-5.0); BG FRACTION INSPIRED OXYGEN 21; BG METHEMOGLOBIN 0.2 % (0.0-1.5); BG OXYGEN SATURATION 91.1 % (92.0-98.5); BG OXYHEMOGLOBIN 90.5 % (94.0-97.0); BG PCO2 42.9 mmHg (35.0-45.0); BG PH 7.463 (7.350-7.450); BG PO2 56.8 mmHg (75.0-100.0); BG SAMPLE SITE RIGHT RADIAL; BG TOTAL HEMOGLOBIN 12.2 g/dL (12.0-18.0); BG VENT MODE ROOM AIR
[2023-06-28] VITALS (12 sets, daily range): BP systolic 96–139; BP diastolic 38–87; PULSE 9–85; RESP 12–37; TEMP 97.1–98
[2023-06-28 06:14] LABS: HEMATOCRIT 35.7 % (42.0-52.0); HEMOGLOBIN 11.8 g/dL (14.0-18.0); MEAN CORPUSCULAR HEMOGLOBIN 30.2 pg (28.0-32.0); MEAN CORPUSCULAR HGB CONC 33.1 g/dL (31.0-37.0); MEAN CORPUSCULAR VOLUME 91.2 fL (80.0-94.0); PLATELET 194 x1000/uL (130-400); RED BLOOD CELL COUNT 3.91 mill/uL (4.7-6.1); RED CELL DISTRIBUTION WIDTH 14.7 % (11.6-14.6); WHITE BLOOD COUNT 11.4 x1000/uL (4.5-11.0)
[2023-06-28 06:48] LABS: CALCIUM 8.2 mg/dL (8.7-10.4); CARBON DIOXIDE 32 mEq/L (21-32); CHLORIDE 102 mEq/L (98-107); CREATININE 0.6 mg/dL (0.6-1.3); GLUCOSE 129 mg/dL (70-105); PHOSPHORUS 2.4 mg/dL (2.5-4.9); POTASSIUM 4.7 mEq/L (3.5-5.1); SODIUM 137 mEq/L (136-145); UREA NITROGEN BLOOD 26 mg/dL (9-23)
[2023-06-28] MEDS: SODIUM PHOSPHATE 20 MMOL in DEXT 5% WATER 243.3333 ML IV SCH (09:59)
[2023-06-29] VITALS (10 sets, daily range): BP systolic 95–130; BP diastolic 41–62; PULSE 80–110; RESP 22–38; TEMP 97–98.9
[2023-06-29 09:14] LABS: HEMATOCRIT 38.7 % (42.0-52.0); HEMOGLOBIN 12.7 g/dL (14.0-18.0); MEAN CORPUSCULAR HEMOGLOBIN 29.3 pg (28.0-32.0); MEAN CORPUSCULAR HGB CONC 32.9 g/dL (31.0-37.0); PLATELET 201 x1000/uL (130-400); RED BLOOD CELL COUNT 4.35 mill/uL (4.7-6.1); RED CELL DISTRIBUTION WIDTH 14.7 % (11.6-14.6); WHITE BLOOD COUNT 21.1 x1000/uL (4.5-11.0)
[2023-06-29 09:57] LABS: CALCIUM 8.7 mg/dL (8.7-10.4); CARBON DIOXIDE 33 mEq/L (21-32); CHLORIDE 100 mEq/L (98-107); CREATININE 0.6 mg/dL (0.6-1.3); GLUCOSE 110 mg/dL (70-105); PHOSPHORUS 1.9 mg/dL (2.5-4.9); POTASSIUM 4.2 mEq/L (3.5-5.1); SODIUM 135 mEq/L (136-145); UREA NITROGEN BLOOD 22 mg/dL (9-23)
[2023-06-29] MEDS: ZINC OXIDE 20% OINT 30GM TOP SCH (16:05)
[2023-06-29] MEDS: NYSTATIN 100,000 UNITS/GM CREAM 15GM TOP SCH (16:05)
[2023-06-30] VITALS (14 sets, daily range): BP systolic 94–137; BP diastolic 36–80; PULSE 76–113; RESP 17–41; TEMP 96.9–97.9
[2023-06-30 07:19] LABS: HEMATOCRIT 34.1 % (42.0-52.0); HEMOGLOBIN 11.5 g/dL (14.0-18.0); MEAN CORPUSCULAR HEMOGLOBIN 30.4 pg (28.0-32.0); MEAN CORPUSCULAR HGB CONC 33.7 g/dL (31.0-37.0); MEAN CORPUSCULAR VOLUME 90.2 fL (80.0-94.0); PLATELET 165 x1000/uL (130-400); RED BLOOD CELL COUNT 3.79 mill/uL (4.7-6.1); RED CELL DISTRIBUTION WIDTH 14.7 % (11.6-14.6); WHITE BLOOD COUNT 10.9 x1000/uL (4.5-11.0)
[2023-06-30 07:37] LABS: CARBON DIOXIDE 32 mEq/L (21-32); CHLORIDE 103 mEq/L (98-107); CREATININE 0.5 mg/dL (0.6-1.3); GLUCOSE 110 mg/dL (70-105); PHOSPHORUS 2.7 mg/dL (2.5-4.9); POTASSIUM 4.1 mEq/L (3.5-5.1); SODIUM 137 mEq/L (136-145); UREA NITROGEN BLOOD 20 mg/dL (9-23)
[2023-06-30 17:10] LABS: BG BASE EXCESS 5.7 mmol/L (-2.0-2.0); BG DEOXYHEMOGLOBIN 4.1 % (0.0-5.0); BG FRACTION INSPIRED OXYGEN 21; BG HCO3 ACT 29.9 mmol/L (22.0-26.0); BG METHEMOGLOBIN 0.2 % (0.0-1.5); BG OXYGEN SATURATION 95.9 % (92.0-98.5); BG OXYHEMOGLOBIN 94.7 % (94.0-97.0); BG PH 7.471 (7.350-7.450); BG PO2 74.9 mmHg (75.0-100.0); BG SAMPLE SITE RIGHT RADIAL; BG TOTAL HEMOGLOBIN 12.6 g/dL (12.0-18.0); BG VENT MODE ROOM AIR
[2023-06-30] MEDS: METHYLPREDNISOLONE SOD SUCC 40MG/ML (ACT-O-VIAL) IV SCH (17:43)
[2023-07-01] MEDS ORDERED: MED4 MT (18:53)
== END 2023-06-30 22:45 | disposition home or self-care (01) | DRG 870 ==
LOC: ER 13:44 → 7WST 15:10 → EDBEDREQTM 15:13 → EDBEDREQ 15:13 → 5EST 06-17 15:14 → CVICU 06-17 16:40 → 5EST 06-24 21:23 → 8WST 06-30 13:55
PROVIDERS: ADMIT Preventive Medicine Clinical Informatics; ATTEND Preventive Medicine Clinical Informatics
PROC: 5A1955Z Respiratory Ventilation, Greater than 96 Consecutive Hours (ICD-10-PCS; principal; 2023-06-17)
PROC: 0BH17EZ Insertion of Endotracheal Airway into Trachea, Via Natural or Artificial Opening (ICD-10-PCS; 2023-06-17)
PROC: 02HV33Z Insertion of Infusion Device into Superior Vena Cava, Percutaneous Approach (ICD-10-PCS; 2023-06-18)
PROC: B548ZZA Ultrasonography of Superior Vena Cava, Guidance (ICD-10-PCS; 2023-06-18)
PROC: 5A0945A Assistance with Respiratory Ventilation, 24-96 Consecutive Hours, High Flow/Velocity Cannula (ICD-10-PCS; 2023-06-22)
DX: A41.59 Other Gram-negative sepsis (principal); G92.8 Other toxic encephalopathy; J96.01 Acute respiratory failure with hypoxia; N17.0 Acute kidney failure with tubular necrosis; J69.0 Pneumonitis due to inhalation of food and vomit; J96.02 Acute respiratory failure with hypercapnia; K56.7 Ileus, unspecified; E87.0 Hyperosmolality and hypernatremia; J44.0 Chronic obstructive pulmonary disease with (acute) lower respiratory infection; J84.9 Interstitial pulmonary disease, unspecified; Z20.822 Contact with and (suspected) exposure to COVID-19; R65.20 Severe sepsis without septic shock; Z93.1 Gastrostomy status; E86.1 Hypovolemia; D64.9 Anemia, unspecified; I48.91 Unspecified atrial fibrillation; R13.10 Dysphagia, unspecified; Z79.899 Other long term (current) drug therapy; Z82.49 Family history of ischemic heart disease and other diseases of the circulatory system; Z87.01 Personal history of pneumonia (recurrent); Z90.49 Acquired absence of other specified parts of digestive tract
CPT/HCPCS: 31500; 36415; 36600; 71045; 71260; 74018; 74176; 80048; 80053; 80061; 80202; 81003; 82375; 82550; 82805; 82962; 83036; 83605; 83735; 83880; 84100; 84145; 84439; 84443; 84478; 84484; 85025; 85027; 86850; 86900; 87070; 87077; 87186; 87426; 92610; 93005; 93970; 94002; 94003; 94640; 97162; 97164; 97166; 97168; 97530; 97535; 99291; A6261; C1893; C9113; J0456; J1650; J1815; J2185; J2250; J2543; J2704; J2765; J2920; J3010; J3370; J3475; J3490; J7030; J7040; J7060; J7121; J7608; J7626; Q9963; Q9967

== ENCOUNTER 2023-07-06 04:05 | Inpatient (IN) | payer OTHER, MEDICARE ==
[~2023-07-06] VITALS: Ht 165.1 cm; Wt 58.8 kg
[~2023-07-06 04:05] MED LIST: IMOD PO; MED4 MT; MIDO5TAB4 PO
[2023-07-06 04:46] LABS: HEMATOCRIT. 39.3 % (42.0-52.0); HEMOGLOBIN. 12.7 g/dL (14.0-18.0); MEAN CORPUSCULAR HEMOGLOBIN 30.3 pg (28.0-32.0); MEAN CORPUSCULAR HGB CONC 32.4 g/dL (31.0-37.0); MEAN CORPUSCULAR VOLUME 93.6 fL (80.0-94.0); MEAN PLATELET VOLUME 8.7 fl (7.4-10.4); PLATELET 226 x1000/uL (130-400); RED CELL DISTRIBUTION WIDTH 15.1 % (11.6-14.6)
[2023-07-06 04:55] LABS: DIFFERENTIAL COMMENT 1
[2023-07-06 05:04] LABS: ALANINE AMINOTRANSFERASE 31 IU/L (10-49); ALBUMIN 3.8 g/dL (3.2-4.8); ASPARTATE AMINOTRANSFERASE 26 IU/L (<34); BILIRUBIN TOTAL 0.4 mg/dL (0.1-1.0); CALCIUM 9.2 mg/dL (8.7-10.4); CARBON DIOXIDE 31 mEq/L (21-32); CHLORIDE 111 mEq/L (98-107); CREATININE 1.2 mg/dL (0.6-1.3); GLUCOSE 125 mg/dL (70-105); POTASSIUM 4.4 mEq/L (3.5-5.1); PROTEIN TOTAL 6.6 g/dL (6.0-8.3); SODIUM 145 mEq/L (136-145); UREA NITROGEN BLOOD 49 mg/dL (9-23)
[2023-07-06] MEDS: SODIUM CHLORIDE 0.9% 1000ML BAG (SEPSIS BOLUS) IV ONE (05:30)
[2023-07-06] MEDS: PIPERACILLIN/TAZO 3.375G/50ML 50 ML IV ONE (05:30)
[2023-07-06 05:45] LABS: TROPONIN I HIGH SENSITIVITY 35 ng/L (3.0-53)
[2023-07-06 05:53] LABS: INR 1.1; PROTHROMBIN TIME 11.7 sec (9.6-11.0)
[2023-07-06 06:02] LABS: PLATELET ESTIMATE NORMAL
[2023-07-06] MEDS: VANCOMYCIN 1G PREMIX 200 ML IV ONE (06:06)
[2023-07-06] MEDS ORDERED: LIDOCAINE HCL 1% 10 MG/ML 10ML VIAL ONE (07:03)
[2023-07-06] MEDS ORDERED: PIPERACILLIN/TAZOBACTAM 3.375 G in DEXTROSE 5% WATER 50 ML IV SCH (09:00)
[2023-07-06] MEDS ORDERED: MAGNESIUM/ALUMINUM HYDROXIDE/SIMETHICONE 30ML UDC PO PRN (09:00)
[2023-07-06] MEDS ORDERED: ACETAMINOPHEN 325MG TABLET PO PRN ×2 (09:00)
[2023-07-06] MEDS ORDERED: CLONIDINE 0.1MG TABLET PO PRN (09:00)
[2023-07-06] MEDS ORDERED: ONDANSETRON HCL 4MG/2ML INJ IV PRN (09:00)
[2023-07-06] MEDS ORDERED: IPRATROPIUM/ALBUTEROL 0.5-3(2.5)MG/3ML NEB NEB PRN (09:00)
[2023-07-06] MEDS: ENOXAPARIN 40MG/0.4ML SYR SUBCUT SCH (10:09)
[2023-07-06 14:01] VITALS: PULSE 97; RESP 24; O2SAT 100
[2023-07-06] MEDS: IPRATROPIUM/ALBUTEROL 0.5-3(2.5)MG/3ML NEB NEB SCH (14:01)
[2023-07-06] MEDS: PIPERACILLIN/TAZO 3.375G/50ML 50 ML IV SCH (14:30)
[2023-07-06 20:09] VITALS: PULSE 132
[2023-07-07] VITALS (51 sets, daily range): BP systolic 66–122; BP diastolic 27–96; PULSE 54–115; RESP 18–46; TEMP 97.5–98.5; O2SAT 97–100
[2023-07-07] MEDS: VANCOMYCIN 750MG/150ML IV SCH (06:00)
[2023-07-07 07:30] LABS: CALCIUM 8.7 mg/dL (8.7-10.4); CARBON DIOXIDE 30 mEq/L (21-32); CHLORIDE 113 mEq/L (98-107); CREATININE 1.5 mg/dL (0.6-1.3); GLUCOSE 119 mg/dL (70-105); POTASSIUM 5.2 mEq/L (3.5-5.1); SODIUM 149 mEq/L (136-145); UREA NITROGEN BLOOD 40 mg/dL (9-23)
[2023-07-07 07:37] LABS: HEMATOCRIT. 39.5 % (42.0-52.0); MEAN CORPUSCULAR HEMOGLOBIN 30.1 pg (28.0-32.0); MEAN CORPUSCULAR HGB CONC 30.5 g/dL (31.0-37.0); MEAN CORPUSCULAR VOLUME 98.7 fL (80.0-94.0); MEAN PLATELET VOLUME 8.8 fl (7.4-10.4); PLATELET 203 x1000/uL (130-400); RED CELL DISTRIBUTION WIDTH 15.9 % (11.6-14.6); WHITE BLOOD COUNT 13.1 x1000/uL (4.5-11.0)
[2023-07-07 08:09] LABS: DIFFERENTIAL COMMENT 1
[2023-07-07] MEDS: SODIUM CHLORIDE 0.9% 1000ML BAG (SEPSIS BOLUS) IV ONE (08:59)
[2023-07-07] MEDS: MIDODRINE HCL 5MG TABLET PO SCH (10:00)
[2023-07-07 11:50] LABS: BG BASE EXCESS -2.4 mmol/L (-2.0-2.0); BG CARBOXYHEMOGLOBIN 0.3 % (0.5-1.5); BG DEOXYHEMOGLOBIN 0.9 % (0.0-5.0); BG FRACTION INSPIRED OXYGEN 36; BG METHEMOGLOBIN 0.1 % (0.0-1.5); BG OXYGEN SATURATION 99.1 % (92.0-98.5); BG OXYHEMOGLOBIN 98.7 % (94.0-97.0); BG PCO2 134.4 mmHg (35.0-45.0); BG PH 6.994 (7.350-7.450); BG PO2 226.7 mmHg (75.0-100.0); BG SAMPLE SITE RIGHT BRACHIAL; BG TOTAL HEMOGLOBIN 11.9 g/dL (12.0-18.0); BG VENT MODE NASAL CANNULA
[2023-07-07] MEDS ORDERED: MIDODRINE HCL 5MG TABLET PO SCH (13:00)
[2023-07-07] MEDS: PHENYLEPHRINE 50MG/250ML PMX 250 ML IV PRN (15:37)
[2023-07-07] MEDS: PHENYLEPHRINE 100 MG in DEXT 5% WATER 240 ML IV PRN (16:46)
[2023-07-07] MEDS ORDERED: ACETAMINOPHEN 650MG/20.3ML UDC NG PRN (17:30)
[2023-07-07] MEDS: DOCUSATE SODIUM SUGAR FREE 100MG/10ML UDC NG SCH (18:04)
[2023-07-07 18:07] LABS: PLATELET ESTIMATE NORMAL
[2023-07-07 18:08] LABS: ANISOCYTOSIS 1+
[2023-07-07 18:10] LABS: BG BASE EXCESS 1.5 mmol/L (-2.0-2.0); BG CARBOXYHEMOGLOBIN 0.5 % (0.5-1.5); BG DEOXYHEMOGLOBIN 5.1 % (0.0-5.0); BG FRACTION INSPIRED OXYGEN 25; BG HCO3 ACT 28.2 mmol/L (22.0-26.0); BG METHEMOGLOBIN 0.2 % (0.0-1.5); BG OXYGEN SATURATION 94.9 % (92.0-98.5); BG OXYHEMOGLOBIN 94.2 % (94.0-97.0); BG PCO2 54.5 mmHg (35.0-45.0); BG PH 7.332 (7.350-7.450); BG SAMPLE SITE RIGHT RADIAL; BG TOTAL HEMOGLOBIN 11.7 g/dL (12.0-18.0); BG VENT MODE HIGH FLOW
[2023-07-07] MEDS: LACTULOSE 20G/30ML UDC PO SCH (22:00)
[2023-07-07] MEDS: SENNOSIDES/DOCUSATE SOD 8.6/50MG TABLET PO SCH (22:43)
[2023-07-07] MEDS: METHYLPREDNISOLONE SOD SUCC 40MG/ML (ACT-O-VIAL) IV SCH (22:43)
[2023-07-08] VITALS (98 sets, daily range): BP systolic 90–139; BP diastolic 35–65; PULSE 43–122; RESP 15–45; TEMP 97.6–99.1; O2SAT 99–100
[2023-07-08 05:30] LABS: HEMATOCRIT. 30.5 % (42.0-52.0); MEAN CORPUSCULAR HEMOGLOBIN 30.8 pg (28.0-32.0); MEAN CORPUSCULAR HGB CONC 32.8 g/dL (31.0-37.0); MEAN CORPUSCULAR VOLUME 94.1 fL (80.0-94.0); MEAN PLATELET VOLUME 9.3 fl (7.4-10.4); PLATELET 177 x1000/uL (130-400); RED BLOOD CELL COUNT 3.24 mill/uL (4.7-6.1); RED CELL DISTRIBUTION WIDTH 15.5 % (11.6-14.6); WHITE BLOOD COUNT 12.5 x1000/uL (4.5-11.0)
[2023-07-08 05:45] LABS: CALCIUM 8.4 mg/dL (8.7-10.4); CREATININE 1.7 mg/dL (0.6-1.3); POTASSIUM 3.7 mEq/L (3.5-5.1)
[2023-07-08 06:36] LABS: DIFFERENTIAL COMMENT 1
[2023-07-08] MEDS: ENOXAPARIN 30MG/0.3ML SYR SUBCUT SCH (08:44)
[2023-07-08 09:25] LABS: PLATELET ESTIMATE NORMAL
[2023-07-08] MEDS: PANTOPRAZOLE SODIUM 40 MG/VIAL IV SCH (12:00)
[2023-07-08] MEDS: VANCOMYCIN 500MG/100ML IV NR (13:52)
[2023-07-08] MEDS: SODIUM HYPOCHLORITE SOLUTION (0.5%)FULL STRENGTH TOP SCH (13:52)
[2023-07-08] MEDS ORDERED: VANCOMYCIN 750MG/150ML IV SCH (15:00)
[2023-07-09] VITALS (92 sets, daily range): BP systolic 86–125; BP diastolic 35–87; PULSE 54–173; RESP 9–34; TEMP 97.3–98.6; O2SAT 97–99
[2023-07-09 05:48] LABS: HEMATOCRIT. 26.2 % (42.0-52.0); HEMOGLOBIN. 8.5 g/dL (14.0-18.0); MEAN CORPUSCULAR HEMOGLOBIN 30.6 pg (28.0-32.0); MEAN CORPUSCULAR HGB CONC 32.4 g/dL (31.0-37.0); MEAN CORPUSCULAR VOLUME 94.6 fL (80.0-94.0); MEAN PLATELET VOLUME 9.8 fl (7.4-10.4); PLATELET 156 x1000/uL (130-400); RED BLOOD CELL COUNT 2.77 mill/uL (4.7-6.1); RED CELL DISTRIBUTION WIDTH 15.5 % (11.6-14.6); WHITE BLOOD COUNT 12.1 x1000/uL (4.5-11.0)
[2023-07-09 06:31] LABS: CALCIUM 8.6 mg/dL (8.7-10.4); CREATININE 1.6 mg/dL (0.6-1.3); POTASSIUM 3.7 mEq/L (3.5-5.1)
[2023-07-09 07:06] LABS: DIFFERENTIAL COMMENT 1
[2023-07-09 09:21] LABS: ANISOCYTOSIS 1+; PLATELET ESTIMATE NORMAL
[2023-07-09] MEDS: VANCOMYCIN 500MG/100ML IV SCH (13:36)
[2023-07-09] MEDS: NYSTATIN POWDER 15GM TOP SCH (18:50)
[2023-07-10] VITALS (97 sets, daily range): BP systolic 55–137; BP diastolic 31–70; PULSE 68–115; RESP 15–51; TEMP 96.3–99.4; O2SAT 98–100
[2023-07-10 05:00] LABS: HEMATOCRIT. 29.2 % (42.0-52.0); HEMOGLOBIN. 9.4 g/dL (14.0-18.0); MEAN CORPUSCULAR HGB CONC 32.2 g/dL (31.0-37.0); MEAN CORPUSCULAR VOLUME 96.2 fL (80.0-94.0); MEAN PLATELET VOLUME 9.9 fl (7.4-10.4); PLATELET 156 x1000/uL (130-400); RED BLOOD CELL COUNT 3.04 mill/uL (4.7-6.1); RED CELL DISTRIBUTION WIDTH 15.6 % (11.6-14.6); WHITE BLOOD COUNT 11.9 x1000/uL (4.5-11.0)
[2023-07-10 05:10] LABS: CALCIUM 9.4 mg/dL (8.7-10.4); CREATININE 1.5 mg/dL (0.6-1.3); POTASSIUM 4.4 mEq/L (3.5-5.1)
[2023-07-10 06:55] LABS: DIFFERENTIAL COMMENT 1
[2023-07-10 10:52] LABS: PLATELET ESTIMATE NORMAL
[2023-07-10 11:38] LABS: BG BASE EXCESS 8.1 mmol/L (-2.0-2.0); BG CARBOXYHEMOGLOBIN 0.4 % (0.5-1.5); BG DEOXYHEMOGLOBIN 2.1 % (0.0-5.0); BG FRACTION INSPIRED OXYGEN 28; BG HCO3 ACT 36.8 mmol/L (22.0-26.0); BG METHEMOGLOBIN 0.5 % (0.0-1.5); BG OXYGEN SATURATION 97.9 % (92.0-98.5); BG PCO2 81.5 mmHg (35.0-45.0); BG PH 7.272 (7.350-7.450); BG PO2 103.7 mmHg (75.0-100.0); BG SAMPLE SITE RIGHT RADIAL; BG TOTAL HEMOGLOBIN 9.2 g/dL (12.0-18.0); BG VENT MODE NASAL CANNULA
[2023-07-10 16:21] LABS: BG BASE EXCESS 8.7 mmol/L (-2.0-2.0); BG CARBOXYHEMOGLOBIN 0.3 % (0.5-1.5); BG DEOXYHEMOGLOBIN 2.9 % (0.0-5.0); BG FRACTION INSPIRED OXYGEN 28; BG HCO3 ACT 34.2 mmol/L (22.0-26.0); BG METHEMOGLOBIN 0.2 % (0.0-1.5); BG OXYGEN SATURATION 97.1 % (92.0-98.5); BG OXYHEMOGLOBIN 96.6 % (94.0-97.0); BG PCO2 52.7 mmHg (35.0-45.0); BG SAMPLE SITE RIGHT BRACHIAL; BG TOTAL HEMOGLOBIN 9.1 g/dL (12.0-18.0); BG VENT MODE HIGH FLOW
[2023-07-10 20:04] LABS: ALBUMIN 2.6 g/dL (3.2-4.8)
[2023-07-10 20:22] LABS: PREALBUMIN < 5.0 mg/dl (10.0-40.0)
[2023-07-11] VITALS (90 sets, daily range): BP systolic 92–148; BP diastolic 41–93; PULSE 65–179; RESP 13–53; TEMP 97.7–97.9; O2SAT 100
[2023-07-11] MEDS: ACETAMINOPHEN 650MG/20.3ML UDC NG PRN (02:12)
[2023-07-11 05:57] LABS: HEMATOCRIT. 25.1 % (42.0-52.0); HEMOGLOBIN. 8.2 g/dL (14.0-18.0); MEAN CORPUSCULAR HGB CONC 32.8 g/dL (31.0-37.0); MEAN CORPUSCULAR VOLUME 94.5 fL (80.0-94.0); MEAN PLATELET VOLUME 10.5 fl (7.4-10.4); PLATELET 138 x1000/uL (130-400); RED BLOOD CELL COUNT 2.66 mill/uL (4.7-6.1); RED CELL DISTRIBUTION WIDTH 15.1 % (11.6-14.6); WHITE BLOOD COUNT 8.4 x1000/uL (4.5-11.0)
[2023-07-11 06:07] LABS: CALCIUM 8.7 mg/dL (8.7-10.4); CREATININE 1.2 mg/dL (0.6-1.3); POTASSIUM 4.2 mEq/L (3.5-5.1)
[2023-07-11 07:03] LABS: DIFFERENTIAL COMMENT 1
[2023-07-11] MEDS ORDERED: LIDOCAINE HCL 1% 10 MG/ML 10ML VIAL ONE (08:47)
[2023-07-11] MEDS: MIDODRINE HCL 5MG TABLET PO NR (09:00)
[2023-07-11 09:50] LABS: BG BASE EXCESS 8.8 mmol/L (-2.0-2.0); BG CARBOXYHEMOGLOBIN 0.3 % (0.5-1.5); BG DEOXYHEMOGLOBIN 3.6 % (0.0-5.0); BG FRACTION INSPIRED OXYGEN 28; BG HCO3 ACT 34.2 mmol/L (22.0-26.0); BG METHEMOGLOBIN 0.3 % (0.0-1.5); BG OXYGEN SATURATION 96.4 % (92.0-98.5); BG OXYHEMOGLOBIN 95.8 % (94.0-97.0); BG PH 7.428 (7.350-7.450); BG PO2 84.6 mmHg (75.0-100.0); BG SAMPLE SITE RIGHT RADIAL; BG TOTAL HEMOGLOBIN 8.7 g/dL (12.0-18.0); BG VENT MODE HIGH FLOW
[2023-07-11 09:58] LABS: PLATELET ESTIMATE NORMAL
[2023-07-11] MEDS: MIDODRINE HCL 5MG TABLET PO SCH (14:11)
[2023-07-11 19:03] LABS: BG BASE EXCESS 7.6 mmol/L (-2.0-2.0); BG CARBOXYHEMOGLOBIN 0.3 % (0.5-1.5); BG DEOXYHEMOGLOBIN 3.6 % (0.0-5.0); BG FRACTION INSPIRED OXYGEN 28; BG HCO3 ACT 32.7 mmol/L (22.0-26.0); BG METHEMOGLOBIN 0.3 % (0.0-1.5); BG OXYGEN SATURATION 96.4 % (92.0-98.5); BG OXYHEMOGLOBIN 95.8 % (94.0-97.0); BG PCO2 49.2 mmHg (35.0-45.0); BG PH 7.441 (7.350-7.450); BG PO2 87.5 mmHg (75.0-100.0); BG SAMPLE SITE RIGHT BRACHIAL; BG VENT MODE HIGH FLOW
[2023-07-12] VITALS (56 sets, daily range): BP systolic 58–164; BP diastolic 37–141; PULSE 58–193; RESP 13–48; TEMP 97.5–98.7
[2023-07-12] MEDS ORDERED: PIPERACILLIN/TAZO 3.375G/50ML 50 ML IV SCH (03:15)
[2023-07-12 09:34] LABS: HEMATOCRIT. 22.5 % (42.0-52.0); HEMOGLOBIN. 7.3 g/dL (14.0-18.0); MEAN CORPUSCULAR HEMOGLOBIN 29.9 pg (28.0-32.0); MEAN CORPUSCULAR HGB CONC 32.5 g/dL (31.0-37.0); MEAN CORPUSCULAR VOLUME 92.1 fL (80.0-94.0); MEAN PLATELET VOLUME 10.7 fl (7.4-10.4); PLATELET 129 x1000/uL (130-400); RED BLOOD CELL COUNT 2.45 mill/uL (4.7-6.1); RED CELL DISTRIBUTION WIDTH 15.1 % (11.6-14.6); WHITE BLOOD COUNT 6.2 x1000/uL (4.5-11.0)
[2023-07-12 09:37] LABS: DIFFERENTIAL COMMENT 1
[2023-07-12 11:02] LABS: CALCIUM 8.4 mg/dL (8.7-10.4); CARBON DIOXIDE 36 mEq/L (21-32); CHLORIDE 104 mEq/L (98-107); CREATININE 0.8 mg/dL (0.6-1.3); GLUCOSE 168 mg/dL (70-105); POTASSIUM 4.1 mEq/L (3.5-5.1); SODIUM 144 mEq/L (136-145); UREA NITROGEN BLOOD 39 mg/dL (9-23)
[2023-07-12 13:56] LABS: PLATELET ESTIMATE NORMAL
[2023-07-12 14:46] LABS: BG CARBOXYHEMOGLOBIN 0.3 % (0.5-1.5); BG DEOXYHEMOGLOBIN 3.6 % (0.0-5.0); BG FRACTION INSPIRED OXYGEN 28; BG HCO3 ACT 37.1 mmol/L (22.0-26.0); BG METHEMOGLOBIN 0.2 % (0.0-1.5); BG OXYGEN SATURATION 96.4 % (92.0-98.5); BG OXYHEMOGLOBIN 95.9 % (94.0-97.0); BG PH 7.409 (7.350-7.450); BG PO2 90.1 mmHg (75.0-100.0); BG SAMPLE SITE RIGHT BRACHIAL; BG TOTAL HEMOGLOBIN 8.2 g/dL (12.0-18.0); BG VENT MODE HIGH FLOW
[2023-07-12] MEDS: THEOPHYLLINE ANHYDROUS 80 MG/15 ML 120ML PO SCH (17:54)
[2023-07-12] MEDS ORDERED: NOREPINEPHRINE 8MG/250ML PMX 250 ML IV PRN (19:00)
[2023-07-12] MEDS: PROPOFOL 10MG/ML 100ML 100 ML IV PRN (19:40)
[2023-07-12 19:59] LABS: BG BASE EXCESS 10.5 mmol/L (-2.0-2.0); BG CARBOXYHEMOGLOBIN 0.3 % (0.5-1.5); BG DEOXYHEMOGLOBIN 1.3 % (0.0-5.0); BG FRACTION INSPIRED OXYGEN 50; BG HCO3 ACT 34.3 mmol/L (22.0-26.0); BG METHEMOGLOBIN 0.1 % (0.0-1.5); BG OXYGEN SATURATION 98.7 % (92.0-98.5); BG OXYHEMOGLOBIN 98.3 % (94.0-97.0); BG PCO2 42.7 mmHg (35.0-45.0); BG PH 7.523 (7.350-7.450); BG SAMPLE SITE LEFT RADIAL; BG TOTAL HEMOGLOBIN 8.3 g/dL (12.0-18.0); BG VENT MODE VENT - AC
[2023-07-12] MEDS ORDERED: AMIODARONE HCL 50MG/ML 9ML VIAL IV ONE (20:30)
[2023-07-12] MEDS ORDERED: AMIODARONE HCL 900 MG in DEXT 5% WATER 500 ML IV SCH (22:00)
[2023-07-12 22:06] LABS: TROPONIN I HIGH SENSITIVITY 20 ng/L (3.0-53)
[2023-07-13] VITALS (105 sets, daily range): BP systolic 62–152; BP diastolic 38–118; PULSE 55–168; RESP 0–36; TEMP 97.4–98.7
[2023-07-13] MEDS ORDERED: IOHEXOL-350 100 ML BOTTLE ONE (06:11)
[2023-07-13 08:24] LABS: THYROID STIMULATING HORMONE 2.28 uIU/mL (0.55-4.78)
[2023-07-13 08:40] LABS: BG BASE EXCESS 10.7 mmol/L (-2.0-2.0); BG CARBOXYHEMOGLOBIN 0.3 % (0.5-1.5); BG DEOXYHEMOGLOBIN 1.2 % (0.0-5.0); BG FRACTION INSPIRED OXYGEN 40; BG METHEMOGLOBIN 0.1 % (0.0-1.5); BG OXYGEN SATURATION 98.8 % (92.0-98.5); BG OXYHEMOGLOBIN 98.4 % (94.0-97.0); BG PCO2 39.8 mmHg (35.0-45.0); BG PH 7.549 (7.350-7.450); BG PO2 186.3 mmHg (75.0-100.0); BG SAMPLE SITE LEFT RADIAL; BG TOTAL HEMOGLOBIN 8.1 g/dL (12.0-18.0); BG TOTAL RESPIRATORY RATE 22 b/min; BG VENT MODE VENT - AC
[2023-07-13 09:30] LABS: HEMATOCRIT. 22.6 % (42.0-52.0); HEMOGLOBIN. 7.4 g/dL (14.0-18.0); MEAN CORPUSCULAR HEMOGLOBIN 30.1 pg (28.0-32.0); MEAN CORPUSCULAR HGB CONC 32.9 g/dL (31.0-37.0); MEAN CORPUSCULAR VOLUME 91.3 fL (80.0-94.0); MEAN PLATELET VOLUME 10.6 fl (7.4-10.4); PLATELET 165 x1000/uL (130-400); RED BLOOD CELL COUNT 2.47 mill/uL (4.7-6.1); RED CELL DISTRIBUTION WIDTH 15.1 % (11.6-14.6); WHITE BLOOD COUNT 6.2 x1000/uL (4.5-11.0)
[2023-07-13 09:38] LABS: CALCIUM 8.4 mg/dL (8.7-10.4); CARBON DIOXIDE 32 mEq/L (21-32); CHLORIDE 103 mEq/L (98-107); CREATININE 0.8 mg/dL (0.6-1.3); GLUCOSE 231 mg/dL (70-105); PHOSPHORUS 1.4 mg/dL (2.5-4.9); POTASSIUM 3.6 mEq/L (3.5-5.1); SODIUM 140 mEq/L (136-145); UREA NITROGEN BLOOD 41 mg/dL (9-23)
[2023-07-13 09:45] LABS: DIFFERENTIAL COMMENT 1
[2023-07-13] MEDS ORDERED: DEXTROSE 50% WATER 50ML SYRINGE IV PRN (11:00)
[2023-07-13] MEDS: INSULIN LISPRO 100 UNITS/ML SUBCUT SCH (11:22)
[2023-07-13] MEDS: BLOOD SUGAR DIAGNOSTIC STRIP TEST SCH (11:23)
[2023-07-13] MEDS: SODIUM CHLORIDE 0.9% 1,000 ML IV ONE (11:23)
[2023-07-13 12:19] LABS: IRON 18 ug/dL (65-175); TOTAL IRON BINDING CAPACITY 173 ug/dl (250-425)
[2023-07-13] MEDS: POTASSIUM PHOSPHATE 20 MMOL in DEXT 5% WATER 243.3333 ML IV SCH (12:43)
[2023-07-13 14:43] LABS: VITAMIN B12 SERUM 561 pg/mL (211-911)
[2023-07-13 16:44] LABS: PLATELET ESTIMATE NORMAL
[2023-07-13 17:31] LABS: CREATINE KINASE MB FRACTION 0.7 ng/mL (0.5-3.6)
[2023-07-13] MEDS: IRON SUCROSE COMPLEX 100 MG/5 ML ML IV SCH (18:32)
[2023-07-14] VITALS (92 sets, daily range): BP systolic 61–161; BP diastolic 36–113; PULSE 60–131; RESP 5–33; TEMP 97.4–98.4
[2023-07-14 00:14] LABS: CREATINE KINASE MB FRACTION 0.6 ng/mL (0.5-3.6)
[2023-07-14 05:26] LABS: HEMATOCRIT. 22.2 % (42.0-52.0); HEMOGLOBIN. 7.4 g/dL (14.0-18.0); MEAN CORPUSCULAR HGB CONC 33.5 g/dL (31.0-37.0); MEAN CORPUSCULAR VOLUME 92.6 fL (80.0-94.0); MEAN PLATELET VOLUME 10.7 fl (7.4-10.4); PLATELET 173 x1000/uL (130-400); RED BLOOD CELL COUNT 2.39 mill/uL (4.7-6.1); RED CELL DISTRIBUTION WIDTH 15.5 % (11.6-14.6); WHITE BLOOD COUNT 6.6 x1000/uL (4.5-11.0)
[2023-07-14 05:32] LABS: CARBON DIOXIDE 31 mEq/L (21-32); CHLORIDE 104 mEq/L (98-107); POTASSIUM 3.9 mEq/L (3.5-5.1); SODIUM 141 mEq/L (136-145)
[2023-07-14 05:33] LABS: CALCIUM 8.4 mg/dL (8.7-10.4)
[2023-07-14 05:37] LABS: CREATININE 0.7 mg/dL (0.6-1.3); GLUCOSE 200 mg/dL (70-105)
[2023-07-14 05:38] LABS: CREATINE KINASE MB FRACTION 0.6 ng/mL (0.5-3.6); UREA NITROGEN BLOOD 34 mg/dL (9-23)
[2023-07-14 05:39] LABS: TROPONIN I HIGH SENSITIVITY 16 ng/L (3.0-53)
[2023-07-14 05:40] LABS: PHOSPHORUS 2.4 mg/dL (2.5-4.9)
[2023-07-14 05:42] LABS: CREATINE KINASE 36 IU/L (46-171)
[2023-07-14 07:12] LABS: DIFFERENTIAL COMMENT 1
[2023-07-14 08:52] LABS: BG BASE EXCESS 8.7 mmol/L (-2.0-2.0); BG CARBOXYHEMOGLOBIN 0.1 % (0.5-1.5); BG DEOXYHEMOGLOBIN 1.2 % (0.0-5.0); BG FRACTION INSPIRED OXYGEN 40; BG HCO3 ACT 32.2 mmol/L (22.0-26.0); BG METHEMOGLOBIN 0.3 % (0.0-1.5); BG OXYGEN SATURATION 98.8 % (92.0-98.5); BG OXYHEMOGLOBIN 98.4 % (94.0-97.0); BG PCO2 39.6 mmHg (35.0-45.0); BG PH 7.528 (7.350-7.450); BG PO2 144.9 mmHg (75.0-100.0); BG SAMPLE SITE RIGHT RADIAL; BG TOTAL HEMOGLOBIN 7.1 g/dL (12.0-18.0); BG VENT MODE VENT - AC
[2023-07-14] MEDS: POTASSIUM PHOSPHATE 10 MMOL in DEXT 5% WATER 246.6667 ML IV NR (09:57)
[2023-07-14] MEDS: MAGNESIUM 1 G PREMIX 100 ML IV NR (10:12)
[2023-07-14] MEDS: SODIUM CHLORIDE 0.45% 1,000 ML IV ONE (16:00)
[2023-07-14 17:34] LABS: PLATELET ESTIMATE NORMAL
[2023-07-15] VITALS (117 sets, daily range): BP systolic 70–141; BP diastolic 47–105; PULSE 72–194; RESP 13–39; TEMP 97.3–99.7
[2023-07-15] MEDS: LORAZEPAM 2MG/ML INJ IV NR (01:23)
[2023-07-15 05:27] LABS: HEMATOCRIT 23.6 % (42.0-52.0); HEMOGLOBIN 7.8 g/dL (14.0-18.0); MEAN CORPUSCULAR HEMOGLOBIN 31.2 pg (28.0-32.0); MEAN CORPUSCULAR HGB CONC 32.9 g/dL (31.0-37.0); MEAN CORPUSCULAR VOLUME 94.7 fL (80.0-94.0); PLATELET 176 x1000/uL (130-400); RED BLOOD CELL COUNT 2.49 mill/uL (4.7-6.1)
[2023-07-15 05:33] LABS: CHLORIDE 104 mEq/L (98-107); POTASSIUM 4.1 mEq/L (3.5-5.1); SODIUM 139 mEq/L (136-145)
[2023-07-15 05:34] LABS: CALCIUM 8.3 mg/dL (8.7-10.4); CARBON DIOXIDE 28 mEq/L (21-32)
[2023-07-15 05:39] LABS: CREATININE 0.8 mg/dL (0.6-1.3); GLUCOSE 169 mg/dL (70-105); UREA NITROGEN BLOOD 29 mg/dL (9-23)
[2023-07-15 05:41] LABS: PHOSPHORUS 2.9 mg/dL (2.5-4.9)
[2023-07-15 09:09] LABS: FOLATE HEMATOCRIT 22.1 % (37.5-51.0)
[2023-07-15 09:41] LABS: BG CARBOXYHEMOGLOBIN 0.3 % (0.5-1.5); BG DEOXYHEMOGLOBIN 2.9 % (0.0-5.0); BG FRACTION INSPIRED OXYGEN 30; BG HCO3 ACT 28.9 mmol/L (22.0-26.0); BG METHEMOGLOBIN 0.2 % (0.0-1.5); BG OXYGEN SATURATION 97.1 % (92.0-98.5); BG OXYHEMOGLOBIN 96.6 % (94.0-97.0); BG PCO2 45.1 mmHg (35.0-45.0); BG PH 7.424 (7.350-7.450); BG PO2 98.3 mmHg (75.0-100.0); BG SAMPLE SITE RIGHT RADIAL; BG TOTAL HEMOGLOBIN 7.5 g/dL (12.0-18.0); BG VENT MODE VENT - SIMV
[2023-07-15] MEDS: SODIUM CHLORIDE 0.45% 1,000 ML IV NR (10:28)
[2023-07-15] MEDS: BLOOD SUGAR DIAGNOSTIC STRIP TEST SCH (11:55)
[2023-07-15] MEDS: INSULIN LISPRO 100 UNITS/ML SUBCUT SCH (12:02)
[2023-07-15 12:55] LABS: BG BASE EXCESS 4.6 mmol/L (-2.0-2.0); BG DEOXYHEMOGLOBIN 0.9 % (0.0-5.0); BG FRACTION INSPIRED OXYGEN 40; BG HCO3 ACT 29.4 mmol/L (22.0-26.0); BG METHEMOGLOBIN 0.3 % (0.0-1.5); BG OXYGEN SATURATION 99.1 % (92.0-98.5); BG OXYHEMOGLOBIN 98.8 % (94.0-97.0); BG PCO2 45.1 mmHg (35.0-45.0); BG PH 7.432 (7.350-7.450); BG PO2 171.1 mmHg (75.0-100.0); BG SAMPLE SITE RIGHT RADIAL; BG TOTAL HEMOGLOBIN 8.3 g/dL (12.0-18.0); BG VENT MODE VENT - AC
[2023-07-15] MEDS ORDERED: CEFEPIME 2GM IN DEXT 5% 100ML IV SCH (18:15)
[2023-07-15] MEDS: METHYLPREDNISOLONE SOD SUCC 40MG/ML (ACT-O-VIAL) IV SCH (20:23)
[2023-07-15] MEDS: CEFEPIME 2GM/100ML 100 ML IV SCH (20:23)
[2023-07-16] VITALS (94 sets, daily range): BP systolic 64–143; BP diastolic 44–82; PULSE 76–171; RESP 18–42; TEMP 98.3–100.7
[2023-07-16] MEDS ORDERED: AMIODARONE HCL 50MG/ML 3ML VIAL IV ONE (04:15)
[2023-07-16 04:42] LABS: CARBON DIOXIDE 31 mEq/L (21-32); CHLORIDE 102 mEq/L (98-107); POTASSIUM 4.2 mEq/L (3.5-5.1); SODIUM 139 mEq/L (136-145)
[2023-07-16 04:43] LABS: CALCIUM 8.5 mg/dL (8.7-10.4)
[2023-07-16] MEDS: AMIODARONE 150MG/100ML 100 ML IV NR (04:44)
[2023-07-16 04:45] LABS: HEMATOCRIT 22.9 % (42.0-52.0); HEMOGLOBIN 7.5 g/dL (14.0-18.0); MEAN CORPUSCULAR HEMOGLOBIN 30.8 pg (28.0-32.0); MEAN CORPUSCULAR HGB CONC 32.6 g/dL (31.0-37.0); MEAN CORPUSCULAR VOLUME 94.6 fL (80.0-94.0); PLATELET 138 x1000/uL (130-400); RED BLOOD CELL COUNT 2.43 mill/uL (4.7-6.1); RED CELL DISTRIBUTION WIDTH 16.9 % (11.6-14.6); WHITE BLOOD COUNT 9.6 x1000/uL (4.5-11.0)
[2023-07-16 04:48] LABS: CREATININE 0.8 mg/dL (0.6-1.3); GLUCOSE 224 mg/dL (70-105); UREA NITROGEN BLOOD 35 mg/dL (9-23)
[2023-07-16 04:50] LABS: PHOSPHORUS 2.2 mg/dL (2.5-4.9)
[2023-07-16] MEDS: AMIODARONE HCL 900 MG in DEXT 5% WATER 500 ML IV SCH (05:05)
[2023-07-16 10:15] LABS: BG BASE EXCESS 4.2 mmol/L (-2.0-2.0); BG CARBOXYHEMOGLOBIN 0.4 % (0.5-1.5); BG DEOXYHEMOGLOBIN 1.6 % (0.0-5.0); BG FRACTION INSPIRED OXYGEN 30; BG HCO3 ACT 30.3 mmol/L (22.0-26.0); BG METHEMOGLOBIN 0.3 % (0.0-1.5); BG OXYGEN SATURATION 98.4 % (92.0-98.5); BG OXYHEMOGLOBIN 97.7 % (94.0-97.0); BG PCO2 54.3 mmHg (35.0-45.0); BG PH 7.364 (7.350-7.450); BG PO2 117.5 mmHg (75.0-100.0); BG SAMPLE SITE RIGHT RADIAL; BG TOTAL HEMOGLOBIN 8.3 g/dL (12.0-18.0); BG VENT MODE VENT - AC
[2023-07-16] MEDS: SODIUM PHOSPHATE 10 MMOL in DEXT 5% WATER 246.6667 ML IV NR (10:53)
[2023-07-16] MEDS: CEFTRIAXONE 2GM/50ML 50 ML IV SCH (16:58)
[2023-07-17] VITALS (86 sets, daily range): BP systolic 94–139; BP diastolic 41–74; PULSE 66–129; RESP 16–36; TEMP 97.6–98.3
[2023-07-17 05:16] LABS: HEMATOCRIT 23.3 % (42.0-52.0); HEMOGLOBIN 7.7 g/dL (14.0-18.0); MEAN CORPUSCULAR HEMOGLOBIN 31.2 pg (28.0-32.0); MEAN CORPUSCULAR HGB CONC 32.8 g/dL (31.0-37.0); MEAN CORPUSCULAR VOLUME 95.1 fL (80.0-94.0); PLATELET 100 x1000/uL (130-400); RED BLOOD CELL COUNT 2.45 mill/uL (4.7-6.1); RED CELL DISTRIBUTION WIDTH 17.9 % (11.6-14.6); WHITE BLOOD COUNT 9.4 x1000/uL (4.5-11.0)
[2023-07-17 05:17] LABS: CARBON DIOXIDE 30 mEq/L (21-32); CHLORIDE 102 mEq/L (98-107); POTASSIUM 4.2 mEq/L (3.5-5.1); SODIUM 139 mEq/L (136-145)
[2023-07-17 05:18] LABS: CALCIUM 8.5 mg/dL (8.7-10.4)
[2023-07-17 05:23] LABS: CREATININE 0.7 mg/dL (0.6-1.3); GLUCOSE 222 mg/dL (70-105); UREA NITROGEN BLOOD 37 mg/dL (9-23)
[2023-07-17 05:26] LABS: PHOSPHORUS 1.7 mg/dL (2.5-4.9)
[2023-07-17 11:15] LABS: BG BASE EXCESS 3.5 mmol/L (-2.0-2.0); BG CARBOXYHEMOGLOBIN 0.3 % (0.5-1.5); BG DEOXYHEMOGLOBIN 1.3 % (0.0-5.0); BG FRACTION INSPIRED OXYGEN 30; BG METHEMOGLOBIN 0.1 % (0.0-1.5); BG OXYGEN SATURATION 98.7 % (92.0-98.5); BG OXYHEMOGLOBIN 98.3 % (94.0-97.0); BG PCO2 49.4 mmHg (35.0-45.0); BG PH 7.386 (7.350-7.450); BG PO2 139.8 mmHg (75.0-100.0); BG SAMPLE SITE RIGHT RADIAL; BG TOTAL HEMOGLOBIN 8.1 g/dL (12.0-18.0); BG TOTAL RESPIRATORY RATE 22 b/min; BG VENT MODE VENT - AC
[2023-07-17] MEDS: SODIUM PHOSPHATE 15 MMOL in DEXT 5% WATER 245 ML IV NR (11:22)
[2023-07-17] MEDS: METHYLPREDNISOLONE SOD SUCC 40MG/ML (ACT-O-VIAL) IV SCH (21:29)
[2023-07-17 22:25] LABS: BG BASE EXCESS 4.3 mmol/L (-2.0-2.0); BG CARBOXYHEMOGLOBIN 0.4 % (0.5-1.5); BG DEOXYHEMOGLOBIN 1.4 % (0.0-5.0); BG FRACTION INSPIRED OXYGEN 35; BG HCO3 ACT 29.7 mmol/L (22.0-26.0); BG METHEMOGLOBIN 0.2 % (0.0-1.5); BG OXYGEN SATURATION 98.6 % (92.0-98.5); BG PH 7.401 (7.350-7.450); BG PO2 129.6 mmHg (75.0-100.0); BG SAMPLE SITE RIGHT RADIAL; BG TOTAL HEMOGLOBIN 9.2 g/dL (12.0-18.0); BG VENT MODE VENT - SIMV
[2023-07-18] VITALS (100 sets, daily range): BP systolic 97–171; BP diastolic 46–83; PULSE 61–108; RESP 14–36; TEMP 97.2–97.9
[2023-07-18 05:45] LABS: CHLORIDE 102 mEq/L (98-107); SODIUM 138 mEq/L (136-145)
[2023-07-18 05:46] LABS: CARBON DIOXIDE 31 mEq/L (21-32)
[2023-07-18 05:47] LABS: CALCIUM 7.9 mg/dL (8.7-10.4)
[2023-07-18 05:48] LABS: MEAN CORPUSCULAR HEMOGLOBIN 31.4 pg (28.0-32.0); MEAN CORPUSCULAR HGB CONC 33.5 g/dL (31.0-37.0); MEAN CORPUSCULAR VOLUME 93.7 fL (80.0-94.0); MEAN PLATELET VOLUME 10.9 fl (7.4-10.4); PLATELET 64 x1000/uL (130-400); RED BLOOD CELL COUNT 2.05 mill/uL (4.7-6.1); RED CELL DISTRIBUTION WIDTH 17.3 % (11.6-14.6)
[2023-07-18 05:51] LABS: CREATININE 0.6 mg/dL (0.6-1.3); GLUCOSE 189 mg/dL (70-105); UREA NITROGEN BLOOD 36 mg/dL (9-23)
[2023-07-18 07:28] LABS: BG BASE EXCESS 3.1 mmol/L (-2.0-2.0); BG CARBOXYHEMOGLOBIN 0.3 % (0.5-1.5); BG DEOXYHEMOGLOBIN 1.4 % (0.0-5.0); BG METHEMOGLOBIN 0.2 % (0.0-1.5); BG OXYGEN SATURATION 98.6 % (92.0-98.5); BG OXYHEMOGLOBIN 98.1 % (94.0-97.0); BG PH 7.412 (7.350-7.450); BG PO2 145.5 mmHg (75.0-100.0); BG SAMPLE SITE RIGHT RADIAL; BG TOTAL HEMOGLOBIN 6.7 g/dL (12.0-18.0); BG VENT MODE VENT - SIMV
[2023-07-18 07:29] LABS: DIFFERENTIAL COMMENT 1; HEMATOCRIT. 19.2 % (42.0-52.0); HEMOGLOBIN. 6.4 g/dL (14.0-18.0)
[2023-07-18 11:55] LABS: ANISOCYTOSIS 1+; PLATELET ESTIMATE DECREASED
[2023-07-18 18:35] LABS: HEMATOCRIT 28.2 % (42.0-52.0); HEMOGLOBIN 9.4 g/dL (14.0-18.0)
[2023-07-19] VITALS (70 sets, daily range): BP systolic 81–141; BP diastolic 49–128; PULSE 8–178; RESP 12–32; TEMP 97.6
[2023-07-19 05:10] LABS: HEMATOCRIT. 25.4 % (42.0-52.0); HEMOGLOBIN. 8.6 g/dL (14.0-18.0); MEAN CORPUSCULAR HEMOGLOBIN 31.3 pg (28.0-32.0); MEAN CORPUSCULAR HGB CONC 33.8 g/dL (31.0-37.0); MEAN CORPUSCULAR VOLUME 92.4 fL (80.0-94.0); PLATELET 52 x1000/uL (130-400); RED BLOOD CELL COUNT 2.75 mill/uL (4.7-6.1); WHITE BLOOD COUNT 10.2 x1000/uL (4.5-11.0)
[2023-07-19 05:16] LABS: CHLORIDE 102 mEq/L (98-107); SODIUM 136 mEq/L (136-145)
[2023-07-19 05:17] LABS: CARBON DIOXIDE 29 mEq/L (21-32)
[2023-07-19 05:18] LABS: CALCIUM 7.7 mg/dL (8.7-10.4)
[2023-07-19 05:22] LABS: CREATININE 0.5 mg/dL (0.6-1.3); GLUCOSE 181 mg/dL (70-105); UREA NITROGEN BLOOD 39 mg/dL (9-23)
[2023-07-19 05:37] LABS: DIFFERENTIAL COMMENT 1
[2023-07-19 08:51] LABS: BG BASE EXCESS 4.1 mmol/L (-2.0-2.0); BG CARBOXYHEMOGLOBIN 0.3 % (0.5-1.5); BG DEOXYHEMOGLOBIN 1.1 % (0.0-5.0); BG FRACTION INSPIRED OXYGEN 40; BG HCO3 ACT 30.1 mmol/L (22.0-26.0); BG OXYGEN SATURATION 98.9 % (92.0-98.5); BG OXYHEMOGLOBIN 98.6 % (94.0-97.0); BG PCO2 53.2 mmHg (35.0-45.0); BG PH 7.371 (7.350-7.450); BG PO2 183.7 mmHg (75.0-100.0); BG SAMPLE SITE RIGHT RADIAL; BG TOTAL HEMOGLOBIN 9.6 g/dL (12.0-18.0); BG TOTAL RESPIRATORY RATE 30 b/min; BG VENT MODE VENT - SIMV
[2023-07-19 11:11] LABS: ANISOCYTOSIS 1+; PLATELET ESTIMATE DECREASED
[2023-07-19 12:28] LABS: BG BASE EXCESS 4.5 mmol/L (-2.0-2.0); BG CARBOXYHEMOGLOBIN 0.3 % (0.5-1.5); BG DEOXYHEMOGLOBIN 0.9 % (0.0-5.0); BG FRACTION INSPIRED OXYGEN 40; BG HCO3 ACT 30.8 mmol/L (22.0-26.0); BG METHEMOGLOBIN 0.3 % (0.0-1.5); BG OXYGEN SATURATION 99.1 % (92.0-98.5); BG OXYHEMOGLOBIN 98.5 % (94.0-97.0); BG PCO2 55.5 mmHg (35.0-45.0); BG PH 7.362 (7.350-7.450); BG PO2 192.8 mmHg (75.0-100.0); BG SAMPLE SITE RIGHT RADIAL; BG TOTAL HEMOGLOBIN 9.7 g/dL (12.0-18.0); BG TOTAL RESPIRATORY RATE 21 b/min; BG VENT MODE VENT - SIMV
[2023-07-19] MEDS ORDERED: DEXTROSE 50% WATER 50ML SYRINGE IV PRN (13:00)
[2023-07-19] MEDS: INSULIN LISPRO 100 UNITS/ML SUBCUT SCH (18:41)
[2023-07-19] MEDS: PANTOPRAZOLE SODIUM 40 MG/VIAL IV SCH (20:53)
[2023-07-20] VITALS (69 sets, daily range): BP systolic 94–154; BP diastolic 44–69; PULSE 59–79; RESP 10–28; TEMP 97.2–98
[2023-07-20 05:13] LABS: CHLORIDE 97 mEq/L (98-107); POTASSIUM 3.5 mEq/L (3.5-5.1); SODIUM 128 mEq/L (136-145)
[2023-07-20 05:14] LABS: CALCIUM 6.2 mg/dL (8.7-10.4); CARBON DIOXIDE 27 mEq/L (21-32)
[2023-07-20 05:17] LABS: HEMATOCRIT. 21.6 % (42.0-52.0); HEMOGLOBIN. 7.2 g/dL (14.0-18.0); MEAN CORPUSCULAR HEMOGLOBIN 31.6 pg (28.0-32.0); MEAN CORPUSCULAR HGB CONC 33.4 g/dL (31.0-37.0); MEAN CORPUSCULAR VOLUME 94.7 fL (80.0-94.0); MEAN PLATELET VOLUME 11.6 fl (7.4-10.4); RED BLOOD CELL COUNT 2.28 mill/uL (4.7-6.1); RED CELL DISTRIBUTION WIDTH 16.8 % (11.6-14.6)
[2023-07-20 05:19] LABS: CREATININE 0.4 mg/dL (0.6-1.3); GLUCOSE 180 mg/dL (70-105); UREA NITROGEN BLOOD 26 mg/dL (9-23)
[2023-07-20 06:35] LABS: DIFFERENTIAL COMMENT 1
[2023-07-20 06:36] LABS: PLATELET 38 x1000/uL (130-400)
[2023-07-20 08:57] LABS: D-DIMER 4.16 mg/L FEU (<0.50); PROTHROMBIN TIME 11.5 sec (9.6-11.0)
[2023-07-20 09:11] LABS: BG BASE EXCESS 3.9 mmol/L (-2.0-2.0); BG CARBOXYHEMOGLOBIN 0.3 % (0.5-1.5); BG DEOXYHEMOGLOBIN 0.9 % (0.0-5.0); BG FRACTION INSPIRED OXYGEN 40; BG METHEMOGLOBIN 0.3 % (0.0-1.5); BG OXYGEN SATURATION 99.1 % (92.0-98.5); BG OXYHEMOGLOBIN 98.5 % (94.0-97.0); BG PCO2 53.2 mmHg (35.0-45.0); BG PH 7.369 (7.350-7.450); BG PO2 186.4 mmHg (75.0-100.0); BG SAMPLE SITE RIGHT RADIAL; BG TOTAL HEMOGLOBIN 9.8 g/dL (12.0-18.0); BG VENT MODE VENT - SIMV
[2023-07-20 12:57] LABS: PLATELET ESTIMATE MARKEDLY DECREASED
[2023-07-20 14:10] LABS: FOLATE RBC 1946 ng/mL (>498)
[2023-07-20 16:07] LABS: BG BASE EXCESS 5.2 mmol/L (-2.0-2.0); BG CARBOXYHEMOGLOBIN 0.3 % (0.5-1.5); BG DEOXYHEMOGLOBIN 0.7 % (0.0-5.0); BG FRACTION INSPIRED OXYGEN 40; BG HCO3 ACT 31.6 mmol/L (22.0-26.0); BG OXYGEN SATURATION 99.3 % (92.0-98.5); BG PCO2 55.7 mmHg (35.0-45.0); BG PH 7.372 (7.350-7.450); BG PO2 181.8 mmHg (75.0-100.0); BG SAMPLE SITE RIGHT RADIAL; BG VENT MODE VENT - CPAP
[2023-07-20 18:34] LABS: HEMOGLOBIN 10.8 g/dL (14.0-18.0)
[2023-07-21] VITALS (52 sets, daily range): BP systolic 112–155; BP diastolic 54–72; PULSE 56–81; RESP 16–33; TEMP 97.5–97.6
[2023-07-21 05:33] LABS: CARBON DIOXIDE 32 mEq/L (21-32); CHLORIDE 104 mEq/L (98-107); POTASSIUM 4.3 mEq/L (3.5-5.1); SODIUM 140 mEq/L (136-145)
[2023-07-21 05:34] LABS: CALCIUM 7.6 mg/dL (8.7-10.4); HEMATOCRIT 31.7 % (42.0-52.0); HEMOGLOBIN 10.6 g/dL (14.0-18.0); MEAN CORPUSCULAR HEMOGLOBIN 31.7 pg (28.0-32.0); MEAN CORPUSCULAR HGB CONC 33.5 g/dL (31.0-37.0); MEAN CORPUSCULAR VOLUME 94.5 fL (80.0-94.0); RED BLOOD CELL COUNT 3.36 mill/uL (4.7-6.1); RED CELL DISTRIBUTION WIDTH 15.5 % (11.6-14.6); WHITE BLOOD COUNT 10.4 x1000/uL (4.5-11.0)
[2023-07-21 05:39] LABS: CREATININE 0.5 mg/dL (0.6-1.3); GLUCOSE 211 mg/dL (70-105); UREA NITROGEN BLOOD 38 mg/dL (9-23)
[2023-07-21 05:45] LABS: PLATELET 43 x1000/uL (130-400)
[2023-07-21 13:48] LABS: BG BASE EXCESS 2.5 mmol/L (-2.0-2.0); BG CARBOXYHEMOGLOBIN 0.1 % (0.5-1.5); BG DEOXYHEMOGLOBIN 1.4 % (0.0-5.0); BG FRACTION INSPIRED OXYGEN 40; BG HCO3 ACT 27.1 mmol/L (22.0-26.0); BG METHEMOGLOBIN 0.2 % (0.0-1.5); BG OXYGEN SATURATION 98.6 % (92.0-98.5); BG OXYHEMOGLOBIN 98.3 % (94.0-97.0); BG PCO2 41.5 mmHg (35.0-45.0); BG PH 7.432 (7.350-7.450); BG SAMPLE SITE RIGHT RADIAL; BG TOTAL HEMOGLOBIN 10.7 g/dL (12.0-18.0); BG VENT MODE T PIECE
[2023-07-22] VITALS (24 sets, daily range): BP systolic 112–151; BP diastolic 54–79; PULSE 66–89; RESP 15–37; TEMP 97.5–97.8
[2023-07-22 04:45] LABS: HEMOGLOBIN. 7.3 g/dL (14.0-18.0); MEAN CORPUSCULAR HEMOGLOBIN 31.7 pg (28.0-32.0); MEAN CORPUSCULAR HGB CONC 32.9 g/dL (31.0-37.0); MEAN CORPUSCULAR VOLUME 96.3 fL (80.0-94.0); MEAN PLATELET VOLUME 11.7 fl (7.4-10.4); RED BLOOD CELL COUNT 2.29 mill/uL (4.7-6.1); RED CELL DISTRIBUTION WIDTH 16.1 % (11.6-14.6); WHITE BLOOD COUNT 6.2 x1000/uL (4.5-11.0)
[2023-07-22 04:57] LABS: CARBON DIOXIDE 21 mEq/L (21-32); CHLORIDE 105 mEq/L (98-107); PLATELET 31 x1000/uL (130-400)
[2023-07-22 04:58] LABS: DIFFERENTIAL COMMENT 1
[2023-07-22 05:03] LABS: GLUCOSE 122 mg/dL (70-105); UREA NITROGEN BLOOD 19 mg/dL (9-23)
[2023-07-22 06:16] LABS: CREATININE 0.2 mg/dL (0.6-1.3); SODIUM 131 mEq/L (136-145)
[2023-07-22 06:18] LABS: CALCIUM 4.6 mg/dL (8.7-10.4); POTASSIUM 2.6 mEq/L (3.5-5.1)
[2023-07-22 08:58] LABS: BG BASE EXCESS 6.1 mmol/L (-2.0-2.0); BG CARBOXYHEMOGLOBIN 0.3 % (0.5-1.5); BG DEOXYHEMOGLOBIN 1.3 % (0.0-5.0); BG FRACTION INSPIRED OXYGEN 40; BG METHEMOGLOBIN 0.2 % (0.0-1.5); BG OXYGEN SATURATION 98.7 % (92.0-98.5); BG OXYHEMOGLOBIN 98.2 % (94.0-97.0); BG PCO2 58.6 mmHg (35.0-45.0); BG PH 7.368 (7.350-7.450); BG PO2 135.7 mmHg (75.0-100.0); BG SAMPLE SITE RIGHT RADIAL; BG VENT MODE HIGH FLOW
[2023-07-22 09:13] LABS: CHLORIDE 103 mEq/L (98-107); POTASSIUM 4.2 mEq/L (3.5-5.1); SODIUM 138 mEq/L (136-145)
[2023-07-22 09:14] LABS: CALCIUM 7.8 mg/dL (8.7-10.4); CARBON DIOXIDE 32 mEq/L (21-32)
[2023-07-22] MEDS ORDERED: POTASSIUM PHOSPHATE 30 MMOL in SODIUM CHLORIDE 0.9% 490 ML IV ONE (09:15)
[2023-07-22] MEDS ORDERED: POTASSIUM CHLORIDE 20MEQ/PACKET PEG ONE (09:15)
[2023-07-22 09:19] LABS: GLUCOSE 183 mg/dL (70-105); UREA NITROGEN BLOOD 28 mg/dL (9-23)
[2023-07-22 09:46] LABS: PHOSPHORUS 1.9 mg/dL (2.5-4.9)
[2023-07-22 09:47] LABS: CREATININE 0.5 mg/dL (0.6-1.3)
[2023-07-22] MEDS ORDERED: CALCIUM GLUCONATE 1GM PREMIX 50 ML IV NR (11:00)
[2023-07-22] MEDS ORDERED: MAGNESIUM 4 G PREMIX 100 ML IV NR (11:30)
[2023-07-22 11:45] LABS: ANISOCYTOSIS 1+; PLATELET ESTIMATE MARKEDLY DECREASED
[2023-07-22 11:53] LABS: BG BASE EXCESS 5.9 mmol/L (-2.0-2.0); BG CARBOXYHEMOGLOBIN 0.4 % (0.5-1.5); BG DEOXYHEMOGLOBIN 1.6 % (0.0-5.0); BG FRACTION INSPIRED OXYGEN 40; BG HCO3 ACT 32.3 mmol/L (22.0-26.0); BG METHEMOGLOBIN 0.2 % (0.0-1.5); BG OXYGEN SATURATION 98.4 % (92.0-98.5); BG OXYHEMOGLOBIN 97.8 % (94.0-97.0); BG PCO2 55.5 mmHg (35.0-45.0); BG PH 7.383 (7.350-7.450); BG PO2 118.6 mmHg (75.0-100.0); BG SAMPLE SITE RIGHT RADIAL; BG VENT MODE COOL AEROSOL
[2023-07-22] MEDS: POTASSIUM PHOSPHATE 15 MMOL in DEXT 5% WATER 245 ML IV SCH (12:00)
[2023-07-22] MEDS: MAGNESIUM 2 G PREMIX 50 ML IV SCH (12:00)
[2023-07-22] MEDS: CALCIUM GLUCONATE 1GM PREMIX 50 ML IV NR (18:10)
[2023-07-23] VITALS (36 sets, daily range): BP systolic 95–157; BP diastolic 47–81; PULSE 61–87; RESP 15–39; TEMP 97.4–98.1; O2SAT 99
[2023-07-23 05:27] LABS: HEMATOCRIT. 34.4 % (42.0-52.0); HEMOGLOBIN. 11.4 g/dL (14.0-18.0); MEAN CORPUSCULAR HEMOGLOBIN 31.7 pg (28.0-32.0); MEAN CORPUSCULAR HGB CONC 33.2 g/dL (31.0-37.0); MEAN CORPUSCULAR VOLUME 95.5 fL (80.0-94.0); MEAN PLATELET VOLUME 11.3 fl (7.4-10.4); RED CELL DISTRIBUTION WIDTH 16.3 % (11.6-14.6); WHITE BLOOD COUNT 7.1 x1000/uL (4.5-11.0)
[2023-07-23 05:42] LABS: CALCIUM 7.7 mg/dL (8.7-10.4); CARBON DIOXIDE 35 mEq/L (21-32); CHLORIDE 100 mEq/L (98-107); POTASSIUM 4.7 mEq/L (3.5-5.1); SODIUM 137 mEq/L (136-145)
[2023-07-23 05:47] LABS: CREATININE 0.5 mg/dL (0.6-1.3); GLUCOSE 162 mg/dL (70-105)
[2023-07-23 05:48] LABS: PLATELET 38 x1000/uL (130-400); UREA NITROGEN BLOOD 33 mg/dL (9-23)
[2023-07-23 05:49] LABS: DIFFERENTIAL COMMENT 1
[2023-07-23 05:50] LABS: PHOSPHORUS 2.8 mg/dL (2.5-4.9)
[2023-07-23 06:26] LABS: PLATELET ESTIMATE MARKEDLY DECREASED
[2023-07-23 06:27] LABS: OVALOCYTES 1+
[2023-07-23] MEDS: IPRATROPIUM/ALBUTEROL 0.5-3(2.5)MG/3ML NEB HHN SCH (20:35)
[2023-07-24] VITALS (45 sets, daily range): BP systolic 101–143; BP diastolic 44–68; PULSE 65–103; RESP 14–41; TEMP 96–98.3; O2SAT 97–100
[2023-07-24] MEDS: ACETYLCYSTEINE 200MG/ML 20% VIAL 4ML PO SCH (02:13)
[2023-07-24] MEDS: ACETYLCYSTEINE 200MG/ML 20% VIAL 4ML INH SCH (14:50)
[2023-07-25] VITALS (41 sets, daily range): BP systolic 106–139; BP diastolic 51–92; PULSE 80–123; RESP 14–43; TEMP 97.4–98.7; O2SAT 97–100
[2023-07-25 05:02] LABS: BASOPHILS % 0.3 % (0.0-2.0); EOSINOPHILS % 0.2 % (0.0-5.0); HEMATOCRIT. 35.4 % (42.0-52.0); HEMOGLOBIN. 11.6 g/dL (14.0-18.0); LYMPHOCYTES % 8.3 % (20.0-50.0); MEAN CORPUSCULAR HEMOGLOBIN 31.6 pg (28.0-32.0); MEAN CORPUSCULAR HGB CONC 32.6 g/dL (31.0-37.0); MEAN CORPUSCULAR VOLUME 96.9 fL (80.0-94.0); MEAN PLATELET VOLUME 10.7 fl (7.4-10.4); MONOCYTES % 2.8 % (2.0-8.0); NEUTROPHILS % 88.4 % (40.0-76.0); RED BLOOD CELL COUNT 3.65 mill/uL (4.7-6.1); RED CELL DISTRIBUTION WIDTH 16.2 % (11.6-14.6)
[2023-07-25 05:07] LABS: CHLORIDE 100 mEq/L (98-107); POTASSIUM 4.2 mEq/L (3.5-5.1); SODIUM 139 mEq/L (136-145)
[2023-07-25 05:08] LABS: CALCIUM 7.9 mg/dL (8.7-10.4); CARBON DIOXIDE 37 mEq/L (21-32)
[2023-07-25 05:13] LABS: CREATININE 0.4 mg/dL (0.6-1.3); GLUCOSE 133 mg/dL (70-105)
[2023-07-25 05:14] LABS: UREA NITROGEN BLOOD 34 mg/dL (9-23)
[2023-07-25 06:23] LABS: DIFFERENTIAL COMMENT 1
[2023-07-25 06:25] LABS: PLATELET 39 x1000/uL (130-400)
[2023-07-25] MEDS: MIDODRINE HCL 5MG TABLET PO SCH (17:00)
[2023-07-25] MEDS ORDERED: FLUTICASONE/VILANTEROL 200-25 BLST.W.DEV ORI SCH (18:00)
[2023-07-26] VITALS (15 sets, daily range): BP systolic 93–129; BP diastolic 47–68; PULSE 89–118; RESP 8–36; TEMP 97.2–98.6; O2SAT 94–98
[2023-07-26 06:41] LABS: HEMATOCRIT. 30.2 % (42.0-52.0); HEMOGLOBIN. 9.9 g/dL (14.0-18.0); MEAN CORPUSCULAR HEMOGLOBIN 31.2 pg (28.0-32.0); MEAN CORPUSCULAR HGB CONC 32.6 g/dL (31.0-37.0); MEAN CORPUSCULAR VOLUME 95.7 fL (80.0-94.0); MEAN PLATELET VOLUME 10.4 fl (7.4-10.4); RED BLOOD CELL COUNT 3.16 mill/uL (4.7-6.1); RED CELL DISTRIBUTION WIDTH 16.3 % (11.6-14.6); WHITE BLOOD COUNT 4.1 x1000/uL (4.5-11.0)
[2023-07-26 06:43] LABS: CARBON DIOXIDE 37 mEq/L (21-32); CHLORIDE 101 mEq/L (98-107); POTASSIUM 4.4 mEq/L (3.5-5.1); SODIUM 138 mEq/L (136-145)
[2023-07-26 06:44] LABS: CALCIUM 7.9 mg/dL (8.7-10.4)
[2023-07-26 06:49] LABS: CREATININE 0.3 mg/dL (0.6-1.3); GLUCOSE 103 mg/dL (70-105); UREA NITROGEN BLOOD 27 mg/dL (9-23)
[2023-07-26 07:04] LABS: DIFFERENTIAL COMMENT 1
[2023-07-26 07:10] LABS: PLATELET 35 x1000/uL (130-400)
[2023-07-26 09:09] LABS: PLATELET ESTIMATE MARKEDLY DECREASED
[2023-07-26] MEDS: PREDNISONE 20MG TABLET PO SCH (10:56)
[2023-07-27] VITALS (15 sets, daily range): BP systolic 96–125; BP diastolic 50–65; PULSE 86–106; RESP 19–35; TEMP 97.1–98.3; O2SAT 99–100
[2023-07-27] MEDS: ACETYLCYSTEINE 200MG/ML 20% VIAL 4ML INH SCH (08:22)
[2023-07-28] VITALS (15 sets, daily range): BP systolic 101–135; BP diastolic 52–69; PULSE 87–141; RESP 14–39; TEMP 97.4–97.7; O2SAT 99–100
[2023-07-28 08:03] LABS: BASOPHILS % 0.1 % (0.0-2.0); EOSINOPHILS % 0.6 % (0.0-5.0); HEMATOCRIT. 29.8 % (42.0-52.0); HEMOGLOBIN. 9.8 g/dL (14.0-18.0); LYMPHOCYTES % 11.9 % (20.0-50.0); MEAN CORPUSCULAR HEMOGLOBIN 31.1 pg (28.0-32.0); MEAN CORPUSCULAR VOLUME 94.3 fL (80.0-94.0); MEAN PLATELET VOLUME 9.8 fl (7.4-10.4); NEUTROPHILS % 84.4 % (40.0-76.0); RED BLOOD CELL COUNT 3.17 mill/uL (4.7-6.1); RED CELL DISTRIBUTION WIDTH 15.8 % (11.6-14.6); WHITE BLOOD COUNT 2.8 x1000/uL (4.5-11.0)
[2023-07-28 10:05] LABS: DIFFERENTIAL COMMENT 1
[2023-07-28 15:05] LABS: ALBUMIN 2.4 g/dL (3.2-4.8)
[2023-07-28] MEDS: MIDODRINE HCL 5MG TABLET PO SCH (17:53)
[2023-07-29] VITALS (12 sets, daily range): BP systolic 80–125; BP diastolic 41–59; PULSE 84–124; RESP 19–33; TEMP 97.6–98.8
[2023-07-29] MEDS: LORAZEPAM 2MG/ML INJ IM NR (00:09)
[2023-07-29] MEDS: SODIUM CHLORIDE 0.9% 250 ML IV NR (05:30)
[2023-07-29] MEDS: MIDODRINE HCL 5MG TABLET PO NR (05:41)
[2023-07-29 07:15] LABS: BASOPHILS % 0.2 % (0.0-2.0); EOSINOPHILS % 0.1 % (0.0-5.0); HEMATOCRIT. 26.5 % (42.0-52.0); HEMOGLOBIN. 8.8 g/dL (14.0-18.0); LYMPHOCYTES % 13.7 % (20.0-50.0); MEAN CORPUSCULAR HEMOGLOBIN 31.6 pg (28.0-32.0); MEAN CORPUSCULAR HGB CONC 33.3 g/dL (31.0-37.0); MEAN PLATELET VOLUME 10.1 fl (7.4-10.4); MONOCYTES % 2.8 % (2.0-8.0); NEUTROPHILS % 83.2 % (40.0-76.0); PLATELET 53 x1000/uL (130-400); RED BLOOD CELL COUNT 2.79 mill/uL (4.7-6.1); RED CELL DISTRIBUTION WIDTH 15.9 % (11.6-14.6); WHITE BLOOD COUNT 3.8 x1000/uL (4.5-11.0)
[2023-07-29] MEDS: MULTIVITAMINS,THER W-MINERALS TABLET GT SCH (10:15)
[2023-07-30] VITALS (11 sets, daily range): BP systolic 101–127; BP diastolic 48–62; PULSE 94–123; RESP 17–42; TEMP 97.8–98.1; O2SAT 99
[2023-07-30 06:24] LABS: BASOPHILS % 0.2 % (0.0-2.0); EOSINOPHILS % 0.1 % (0.0-5.0); HEMATOCRIT. 28.8 % (42.0-52.0); HEMOGLOBIN. 9.5 g/dL (14.0-18.0); LYMPHOCYTES % 13.3 % (20.0-50.0); MEAN CORPUSCULAR HEMOGLOBIN 31.7 pg (28.0-32.0); MEAN CORPUSCULAR HGB CONC 32.8 g/dL (31.0-37.0); MEAN CORPUSCULAR VOLUME 96.4 fL (80.0-94.0); MEAN PLATELET VOLUME 10.1 fl (7.4-10.4); MONOCYTES % 2.1 % (2.0-8.0); NEUTROPHILS % 84.3 % (40.0-76.0); PLATELET 52 x1000/uL (130-400); RED BLOOD CELL COUNT 2.99 mill/uL (4.7-6.1); RED CELL DISTRIBUTION WIDTH 16.1 % (11.6-14.6); WHITE BLOOD COUNT 4.2 x1000/uL (4.5-11.0)
[2023-07-31] VITALS (12 sets, daily range): BP systolic 96–114; BP diastolic 45–93; PULSE 97–121; RESP 15–35; TEMP 97.9–99.4
[2023-07-31 06:11] LABS: BASOPHILS % 0.2 % (0.0-2.0); EOSINOPHILS % 0.2 % (0.0-5.0); HEMATOCRIT. 23.2 % (42.0-52.0); HEMOGLOBIN. 7.7 g/dL (14.0-18.0); LYMPHOCYTES % 14.6 % (20.0-50.0); MEAN CORPUSCULAR HEMOGLOBIN 30.9 pg (28.0-32.0); MEAN CORPUSCULAR HGB CONC 33.3 g/dL (31.0-37.0); MEAN PLATELET VOLUME 9.4 fl (7.4-10.4); MONOCYTES % 2.6 % (2.0-8.0); NEUTROPHILS % 82.4 % (40.0-76.0); PLATELET 57 x1000/uL (130-400); RED BLOOD CELL COUNT 2.49 mill/uL (4.7-6.1); RED CELL DISTRIBUTION WIDTH 15.9 % (11.6-14.6); WHITE BLOOD COUNT 2.9 x1000/uL (4.5-11.0)
[2023-08-01] VITALS (12 sets, daily range): BP systolic 93–118; BP diastolic 45–61; PULSE 102–123; RESP 22–31; TEMP 97.9–99.5; O2SAT 100
[2023-08-01 06:30] LABS: BASOPHILS % 0.2 % (0.0-2.0); EOSINOPHILS % 0.8 % (0.0-5.0); HEMATOCRIT. 22.9 % (42.0-52.0); HEMOGLOBIN. 7.7 g/dL (14.0-18.0); LYMPHOCYTES % 14.3 % (20.0-50.0); MEAN CORPUSCULAR HEMOGLOBIN 31.6 pg (28.0-32.0); MEAN CORPUSCULAR HGB CONC 33.7 g/dL (31.0-37.0); MEAN CORPUSCULAR VOLUME 93.7 fL (80.0-94.0); MEAN PLATELET VOLUME 9.9 fl (7.4-10.4); MONOCYTES % 2.5 % (2.0-8.0); NEUTROPHILS % 82.2 % (40.0-76.0); PLATELET 63 x1000/uL (130-400); RED BLOOD CELL COUNT 2.45 mill/uL (4.7-6.1); RED CELL DISTRIBUTION WIDTH 16.1 % (11.6-14.6); WHITE BLOOD COUNT 3.1 x1000/uL (4.5-11.0)
[2023-08-01 06:43] LABS: CARBON DIOXIDE 35 mEq/L (21-32); CHLORIDE 101 mEq/L (98-107); POTASSIUM 3.4 mEq/L (3.5-5.1); SODIUM 137 mEq/L (136-145)
[2023-08-01 06:44] LABS: CALCIUM 8.1 mg/dL (8.7-10.4)
[2023-08-01 06:49] LABS: GLUCOSE 143 mg/dL (70-105); UREA NITROGEN BLOOD 31 mg/dL (9-23)
[2023-08-01 06:52] LABS: CREATININE 0.4 mg/dL (0.6-1.3)
[2023-08-01] MEDS: POTASSIUM CHLORIDE 20MEQ/PACKET PEG NR (10:29)
[2023-08-01 15:01] LABS: PLATELET 41 x1000/uL (130-400)
[2023-08-01] MEDS ORDERED: IPRATROPIUM/ALBUTEROL 0.5-3(2.5)MG/3ML NEB HHN PRN (18:30)
[2023-08-01] MEDS ORDERED: ACETYLCYSTEINE 200MG/ML 20% VIAL 4ML INH SCH (22:00)
[2023-08-02] MEDS ORDERED: IPRATROPIUM/ALBUTEROL 0.5-3(2.5)MG/3ML NEB HHN SCH
== END 2023-08-01 21:00 | disposition hospice, home (50) | DRG 870 ==
LOC: ER 04:05 → 5EST 07:49 → EDBEDREQ 07:50 → EDBEDREQTM 07:50 → EDBEDREQSVC 11:03 → SUPCPDRO 23:24 → MICUSO 07-07 12:30 → 5EST 07-25 17:43
PROVIDERS: ADMIT Internal Medicine; ATTEND Internal Medicine
PROC: 5A0955A Assistance with Respiratory Ventilation, Greater than 96 Consecutive Hours, High Flow/Velocity Cannula (ICD-10-PCS; 2023-07-07)
PROC: 02HV33Z Insertion of Infusion Device into Superior Vena Cava, Percutaneous Approach (ICD-10-PCS; 2023-07-07)
PROC: B548ZZA Ultrasonography of Superior Vena Cava, Guidance (ICD-10-PCS; 2023-07-07)
PROC: 05H533Z Insertion of Infusion Device into Right Subclavian Vein, Percutaneous Approach (ICD-10-PCS; 2023-07-11)
PROC: B546ZZA Ultrasonography of Right Subclavian Vein, Guidance (ICD-10-PCS; 2023-07-11)
PROC: 5A1955Z Respiratory Ventilation, Greater than 96 Consecutive Hours (ICD-10-PCS; principal; 2023-07-12)
PROC: 0BH17EZ Insertion of Endotracheal Airway into Trachea, Via Natural or Artificial Opening (ICD-10-PCS; 2023-07-12)
PROC: 30233N1 Transfusion of Nonautologous Red Blood Cells into Peripheral Vein, Percutaneous Approach (ICD-10-PCS; 2023-07-18)
PROC: 5A0955A Assistance with Respiratory Ventilation, Greater than 96 Consecutive Hours, High Flow/Velocity Cannula (ICD-10-PCS; 2023-07-27)
PROC: 5A1935Z Respiratory Ventilation, Less than 24 Consecutive Hours (ICD-10-PCS; 2023-07-31)
DX: A41.59 Other Gram-negative sepsis (principal); G92.8 Other toxic encephalopathy; J69.0 Pneumonitis due to inhalation of food and vomit; J96.02 Acute respiratory failure with hypercapnia; R65.21 Severe sepsis with septic shock; J96.01 Acute respiratory failure with hypoxia; J44.0 Chronic obstructive pulmonary disease with (acute) lower respiratory infection; J44.1 Chronic obstructive pulmonary disease with (acute) exacerbation; N17.9 Acute kidney failure, unspecified; J93.9 Pneumothorax, unspecified; I47.10 Supraventricular tachycardia, unspecified; K92.2 Gastrointestinal hemorrhage, unspecified; Z99.11 Dependence on respirator [ventilator] status; J98.2 Interstitial emphysema; F03.90 Unspecified dementia, unspecified severity, without behavioral disturbance, psychotic disturbance, mood disturbance, and anxiety; R13.10 Dysphagia, unspecified; R73.03 Prediabetes; N18.9 Chronic kidney disease, unspecified; K56.41 Fecal impaction; D69.6 Thrombocytopenia, unspecified; D63.1 Anemia in chronic kidney disease; B35.1 Tinea unguium; E83.39 Other disorders of phosphorus metabolism; E86.0 Dehydration; L98.492 Non-pressure chronic ulcer of skin of other sites with fat layer exposed; Z93.1 Gastrostomy status; I48.0 Paroxysmal atrial fibrillation; Z90.49 Acquired absence of other specified parts of digestive tract; Z87.01 Personal history of pneumonia (recurrent); Z74.01 Bed confinement status; Z51.5 Encounter for palliative care
CPT/HCPCS: 31500; 36415; 36573; 36600; 71045; 71250; 71275; 74176; 80048; 80053; 80202; 82040; 82270; 82375; 82550; 82553; 82607; 82728; 82747; 82803; 82805; 82962; 83036; 83540; 83550; 83605; 83735; 83930; 84100; 84134; 84145; 84439; 84443; 84478; 84484; 85014; 85018; 85025; 85027; 85044; 85362; 85379; 85384; 86022; 86850; 86900; 86920; 87070; 87077; 87186; 93005; 93306; 93970; 94002; 94003; 94640; 94660; 97162; 97167; 99291; A6261; C1725; C1760; C9113; J0282; J0610; J0692; J0696; J1650; J1815; J2060; J2370; J2543; J2704; J2920; J3370; J3475; J3490; J7030; J7060; J7512; J7608; P9016; Q9967